=== PATIENT | female | born 1945 | race Caucasian/White ===

== ENCOUNTER → 2016-11-19 | Outpatient (CLI) | payer MEDICARE ==
--- NOTE | 2016-11-21 10:45 | REPMRS ---
Patient History The patient states she has not had a clinical breast exam in over a year. Patient is postmenopausal and has history of other cancer at age 67. Family history of breast cancer in mother at age 50 or over. Benign stereotactic core biopsy. Digital Woman Screen Mammo: November 19, 2016 - Exam #: [id number] Bilateral CC and MLO view(s) were taken. Technologist: Rosa Apodaca, Technologist Prior study comparison: December 21, 2014, digital woman screen mammo performed at [facility]. August 03, 2013, digital woman screen mammo performed at [facility] to [facility]. FINDINGS: There are scattered fibroglandular densities. There is a needle biopsy marker clip in the left breast. There has been no change in the appearance of the mammogram from the prior studies. There is a mild amount of scattered fibroglandular density which is fairly symmetric. There is no interval development of dominant mass, architectural distortion, or clustered microcalcification suggestive of malignancy. ASSESSMENT: BI-RADS/ACR category 1 mammogram. Negative. Recommendation Routine screening mammogram in 1 year (for women over age 40). This mammogram was interpreted with the aid of an FDA-approved computer-aided dectection system. Electronically Signed By: Mukesh Hernandez MD 11/21/16 2914
--- NOTE | 2016-11-22 09:31 | DEXA ---
AP SPINE L1 - L4 1.140 -0.4 1.3 LT FEMUR TOTAL 0.816 -1.5 0.0 RT FEMUR TOTAL 0.792 -1.7 -0.2 TOTAL BODY TOTAL OTHER DUAL FEMUR FRAX* ASSESSMENT Risk factors: History of fracture (adult). 10 year probability of fracture Major osteoporotic fracture 21.1 % Hip fracture 4.8 % COMMENTS: Normal bone densitometry of the spine. There is low bone density of the hips. The density of the spine has increased 3.7% since the initial exam on 2007. The spine density has decreased 3.2% since the most recent exam on 06/02/2014. The density of the left hip has decreased 2.5% since the initial exam on 2007. The density of the left hip has decreased 3.3% since the most recent exam on . The density of the right hip has decreased 4.2% since the initial exam on 2007. The density of the right hip has decreased 2.9% since the most recent exam on . FOLLOW-UP: Recommendation for the next bone density exam: 2 years. KAMARI
== END ==
LOC: M WHC 13:25
PROVIDERS: ATTEND Emergency Medicine
DX: Z13.820 Encounter for screening for osteoporosis (principal); Z12.31 Encounter for screening mammogram for malignant neoplasm of breast; Z80.3 Family history of malignant neoplasm of breast; Z85.9 Personal history of malignant neoplasm, unspecified; M81.0 Age-related osteoporosis without current pathological fracture
CPT/HCPCS: 77080; G0202

== ENCOUNTER → 2017-02-16 | Outpatient (CLI) | payer MEDICARE ==
[2017-02-16 18:37] LABS: BASO # 0.1 10^3/uL (0.0-0.2); BASO % 0.7 % (0.0-1.0); EOS # 0.2 10^3/uL (0.0-0.50); EOS % 1.6 % (0.0-3.0); IMMATURE GRANULOCYTE % 0.4 % (0-0); LYMPH # 2.4 10^3/uL (1.5-4.5); MEAN CORPUSCULAR HEMOGLOBIN 30.7 pg (27.0-33.0); MONO # 0.6 10^3/uL (0.0-0.8); MONO % 4.7 % (0.0-5.0); NEUTROPHILS # 8.7 10^3/uL (1.8-7.7); NEUTROPHILS % 72.6 % (36.0-66.0); PLATELET COUNT, AUTOMATED 315 10^3/uL (150-450); RED CELL DISTRIBUTION WIDTH 12.2 % (11.5-14.5)
[2017-02-16 18:41] LABS: ADD MORPHOLOGY? NO
== END ==
LOC: M WUC 15:37
PROVIDERS: ATTEND Physician Assistant
DX: L03.116 Cellulitis of left lower limb (principal)

== ENCOUNTER → 2017-02-17 | Outpatient (CLI) | payer MEDICARE ==
--- NOTE | 2017-02-18 06:36 | REP ---
LEFT ANKLE, FOUR VIEWS: HISTORY: Pain. There is no acute fracture or dislocation. The joint space is normal in appearance. Soft tissue swelling is present. IMPRESSION: There is no acute fracture or dislocation. Signed by Chalo Mckeon MD 02/18/2017 08:56 A
== END ==
LOC: M WUC 15:36
PROVIDERS: ATTEND Physician Assistant
DX: M25.571 Pain in right ankle and joints of right foot (principal)

== ENCOUNTER → 2018-02-06 | Outpatient (CLI) | payer MEDICARE | LOC: M WHC 10:37 | DX: Z12.31 Encounter for screening mammogram for malignant neoplasm of breast (principal) | CPT/HCPCS: 77067 ==

== ENCOUNTER → 2018-02-18 | Outpatient (REF) | payer MEDICARE | LOC: M LAB REF 17:29 | DX: R31.9 Hematuria, unspecified (principal) | CPT/HCPCS: 87186 ==

== ENCOUNTER → 2019-03-16 | Outpatient (CLI) | payer MEDICARE ==
[~2019-03-16] MED LIST: ATEN50TA2 PO; ATOR40TA75 PO; CITA10TA5 PO; ENAL10TA2 PO; FLUTISP; LAMO100T PO
--- NOTE | 2019-03-16 17:07 | REP ---
BILATERAL MAMMOGRAM WITH 3D TOMOSYNTHESIS: FAMILY HISTORY: Breast cancer in mother over age 50. [facility] lifetime risk of breast cancer 7.3%. COMPARISON: 01/2018 as well as other prior exams. Bilateral mammogram was performed in the MLO and CC projections with 3D tomosynthesis. Mild to moderate scattered fibroglandular tissue is again seen. There appeared to be increasing tiny calcifications in the upper outer quadrant of the right breast. I would recommend magnification views to further evaluate. Otherwise there are scattered benign calcifications seen bilaterally. IMPRESSION: ACR 0 incomplete. There appear to be increasing tiny calcifications in the upper outer quadrant of the right breast. Magnification views are recommended to further evaluate. BIRADS 0: BI-RADS/ACR category 0 mammogram, Incomplete: Need additional imaging evaluation and/or prior mammograms for comparison. This mammogram was interpreted with the aid of an FDA-approved computer-aided detection system. This mammogram was interpreted with the aid of an FDA-approved computer-aided detection system. The patient states she has not had a clinical breast exam in over a year. The patient letter being requested is M0.
--- NOTE | 2019-03-18 14:11 | DEXA ---
AP SPINE L1 - L4 1.114 -0.6 1.1 LT FEMUR TOTAL 0.774 -1.9 -0.2 LT NECK 0.682 -2.6 -0.7 RT FEMUR TOTAL 0.778 -1.8 -0.2 RT NECK 0.722 -2.3 -0.4 TOTAL BODY TOTAL OTHER COMMENTS: Normal bone densitometry of the spine. There is low bone density of the right hip. 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 The decreased density of the spine does represent significant change. The decreased density of the left hip does represent a significant change. The decreased density of the right hip does not represent a significant change. The density of the spine has increased 1.4% since the initial exam on 07/04/2007. The spine density has decreased 2.3% since the most recent exam on 11/19/2016. The density of the left hip has decreased 7.5% since the initial exam on 07/04/2007. The density of the left hip has decreased 5.1% since the most recent exam on 11/19/2016. The density of the right hip has decreased 5.9% since the initial exam on 07/04/2007. The density of the right hip has decreased 1.8% since the most recent exam on 11/19/2016. FOLLOW-UP: Recommendation for the next bone density exam: 2 years. KAMARI
== END ==
LOC: M WHC 12:56
PROVIDERS: ATTEND Physician Assistant
DX: R92.2 Inconclusive mammogram (principal); M89.9 Disorder of bone, unspecified; Z78.0 Asymptomatic menopausal state

== ENCOUNTER → 2019-03-26 | Outpatient (CLI) | payer MEDICARE ==
[~2019-03-26] MED LIST changes: +ISOVUE-370 76% 100ML VIAL (Q9967) As Ordered ONE
--- NOTE | 2019-03-26 17:09 | REP ---
The diagnostic right breast mammogram: Magnification CC and MLO views of the right breast are performed and compared to the recent screening mammogram of 03/16/2019. The increasing number of microcalcifications in the upper outer quadrant of the right breast are confirmed on the spot magnification views. Impression: BIRADS category 4. Suspicious mammogram. Biopsy is recommended. Patient letter : M4 Electronically Signed by Beto Carroll MD 03/26/2019 11:21 A
== END ==
LOC: M RAD 10:51
PROVIDERS: ATTEND Physician Assistant
DX: R92.0 Mammographic microcalcification found on diagnostic imaging of breast (principal)
CPT/HCPCS: 77065; Q9967

== ENCOUNTER → 2019-04-08 | Outpatient (CLI) | payer MEDICARE ==
[~2019-04-08] MED LIST changes: +AZEL0.055 NARES; -ISOVUE-370 76% 100ML VIAL (Q9967) As Ordered ONE; +LIDOCAINE 1% MDV 20ML VIAL As Ordered ONE
[2019-04-08 13:56] VITALS: BP 148/71
--- NOTE | 2019-04-08 14:15 | REP ---
POSTBIOPSY SPECIMEN RADIOGRAPH: Specimen radiograph performed following stereotactic biopsy of clustered microcalcifications in the upper outer quadrant of the right breast. Multiple calcifications are seen in the specimens, predominantly specimen #4 but also in specimens 1 and 5. Electronically Signed by Beto Dunn MD 04/09/2019 11:22 A
--- NOTE | 2019-04-08 14:15 | REP ---
POSTBIOPSY MAMMOGRAM RIGHT BREAST: MLO and CC views of the right breast is performed status post stereotactic biopsy of clustered microcalcifications. Metallic clip is seen at the site of the biopsy and the vast majority of the calcifications are no longer visualized. Electronically Signed by Beto Dunn MD 04/09/2019 11:22 A
--- NOTE | 2019-04-08 15:45 | REP ---
Stereotactic right breast biopsy. This procedure is performed by FLACO Banegas, under the personal supervision of Dr. Dunn. The risks and benefits of the procedure were explained to the patient and informed consent was obtained both verbally and written. Directly prior to the start of the procedure, a formal timeout was done in the procedure room. The cranial caudal approach was utilized. The microcalcifications in the right breast were localized using stereotactic mammographic guidance. 4 ml of 1% lidocaine was used as a local anesthetic. And 8-gauge, suction assisted Mammotome needle was inserted and 6 core biopsy samples were obtained. Specimen radiograph demonstrate the presence of microcalcifications to be within the specimen. A marker clip was placed at the biopsy site. The needle was removed and homeostasis was achieved. The patient tolerated the procedure well and there were no immediate complications. After the appropriate amount of monitored convalescence, the patient was discharged from the department. Impression: Technically successful stereotactic right breast biopsy Reviewed by FLACO Christie 04/08/2019 02:39 P Electronically Signed by Beto Dunn MD 04/08/2019 03:35 P
== END ==
LOC: M IRPRO 11:39
DX: R92.8 Other abnormal and inconclusive findings on diagnostic imaging of breast (principal)

== ENCOUNTER 2021-04-02 17:27 | Emergency (ER) | payer MEDICARE ==
[~2021-04-02] VITALS: Ht 157.5 cm; Wt 67.4 kg
[2021-04-02 17:27] VITALS: BP 133/79
[~2021-04-02 17:27] MED LIST changes: +ENAL-36 PO; -ENAL10TA2 PO; -LAMO100T PO; +LAMO100T3 PO; -LIDOCAINE 1% MDV 20ML VIAL As Ordered ONE
--- OUTSIDE RECORDS SUMMARY | 2021-04-02 17:34 | CCD | Continuity of Care Document ---
Author Author Rosa [facility] Organization Unknown Address [address] [place] [address] Phone [phone] Care Team Providers Care Cloth Printer Helper Name Role Phone Cologuard AUTM [phone] Chalo Villarrela MD AUTM Unavailable [facility] - Dermatology AUTM Problems Active Problems Provider Date Essential hypertension Sonya Madsen M.D. Onset: 10/27 Mixed hyperlipidemia Sonya Madsen M.D. Onset: 011 Migraine with typical aura Sonya Madsen M.D. Onset: 0 10/27/2010 Recurrent major depression in full remission Vivian Loving M.D. Onset: 09/23/2015 Depressive Disorder Major Recurrent In Full Remission Chip Loving M.D. Onset: 06/08/2014 Vitamin D deficiency Chip Loving M.D. Onset: 07/09 Social History Type Date Description Comments Sex Unknown Tobacco Use Start: Unknown Never Smoked Cigarettes Tobacco Use Start: Unknown Never Used Smokeless Tobacco ETOH Use Denies alcohol use Tobacco Use Start: Unknown Patient has never smoked Recreational Drug Use Denies Drug Use Smoking Status Reviewed: 01/13/21 Patient has never smoked Exercise Type/Frequency Does not exercise Tattoo/Piercing Pierced ears Sun Exposure Does not use sunscreen Sun Exposure Minimum amount of sun exposure Seat Belt/Car Seat Always uses seat belt Bike Helmet Always Smoke Alarms Yes Smoke Alarms Carbon Monoxide Detector: Yes Allergies, Adverse Reactions, Alerts Description No Known Drug Allergies Medications Active Medications SIG Qnty Indications Ordering Provide r Date Atorvastatin Calcium 40mg Tablets take 1 tablet by mouth daily for cholesterol 90tabs E78.2 Estrella Irwin, FREELANCE WRITER 09/24/2016 Atenolol 50mg Tablets take 1 tablet by mouth once daily for blood pressure 90tabs Andrzej Irwin, FREELANCE WRITER 06/08/2014 Lamictal 100mg Tablets 1 by mouth three times a day 60tabs Tahir Tariq DO, PhD Citalopram Hydrobromide 20mg Table ts 1 by mouth every day Tahir Tariq DO, PhD Enalapril Maleate 10mg Tablets take 1 tablet by mouth once daily 90tabs Estrella Irwin, FREELANCE WRITER Multivitamin Women Tablets 1 by mouth every day Unknown QC Tumeric Complex 500mg Capsules 2 by mouth every day Unknown Flonase Allergy Relief 50mcg/Act Suspension 1 spray each nare daily Unknown Azelastine HCL (Nasal) 0.1% Soluti on use 2 sprays in each nostril two times a day Unknown Immunizations CPT Code Status Date Vaccine Lot # [id number] Given 08/19/2020 Moderna Sars-(Co vid-19) vaccine, mRNA, LNP-S, PF, 100 mcg/ 0.5 mL [id number] Given 07/22/2020 Moderna Sars-(Co vid-19) vaccine, mRNA, LNP-S, PF, 100 mcg/ 0.5 mL [id number] Given 02/16/2020 Prevnar 13 [id number] Given 02/12/2017 Boostrix (Tdap) Tetnus, Diphtheria Toxoids & Acellular Pertussis [id number] Refused 09/23/2015 Prevnar 13 For Adults 95763 Refused 09/23/2015 Zostavax [id number] Refused 06/15/2015 Pneumococcal Vaccine Vital Signs Date Vital Result Comment 01/13/2021 11:28am BP Systolic 149 mmHg BP Diastolic 74 mmHg BP Systolic Recheck 122 mmHg BP Diastolic Recheck 72 mmHg Heart Rate 66 /min Body Temperature 97.0 F Respiratory Rate 17 /min Height 62 inches 5'2" Weight 148.12 lb O2 % BldC Oximetry 98 % Peak Expiratory Flow Rate 304 Estimated Peak Flow Rate [place] Body Weight 110 lb BMI (Body Mass Index) 27.1 kg/m2 10/25/2020 1:24pm BP Systolic 166 mmHg BP Diastolic 78 mmHg BP Systolic Recheck 148 mmHg recheck BP Diastolic Recheck 80 mmHg recheck Heart Rate 72 /min Body Temperature 97.3 F Respiratory Rate 15 /min Height 62 inches 5'2" Weight 146.00 lb Peak Expiratory Flow Rate 304 Estimated Peak Flow Rate [place] Body Weight 110 lb BMI (Body Mass Index) 26.7 kg/m2 Results Test Acquired Date Facility Test Result H/L Range Note CBC With Differential 10/28/2020 [facility] CBC W/Automated Diff (SEE NOTE) 1, 2 WBC 7.7 10^3/uL 4.2 - 11.0 RBC 4.94 10^6/uL 4.20 - 5.40 Hemoglobin 15.3 g/dL 12.0 - 16.0 Hematocrit 45.5 % 37.0 - 47.0 MCV 92.1 fL 81.0 - 101 MCH 31.0 pg 27.0 - 34.0 MCHC 33.6 g/dL 31.0 - 36.0 RDW 12.1 % 11.5 - 14.5 Platelets 229 10^3/uL 150 - 450 MPV 9.3 fL 7.4 - 10.4 Neut 59.0 % 37.0 - 80.0 Lymph 32.1 % 25.0 - 40.0 [place] 5.5 % 3.0 - 8.0 Eos 2.3 % 0.0 - 7.0 Baso 0.8 % 0.0 - 2.5 %Ig 0.3 % High 0.0 - 0.0 %NRBC 0.0 % 0.0 - 0.0 #Neut 4.54 10^3/uL 2.00 - 6.90 #Lymph 2.47 10^3/uL 0.60 - 3.40 #[place] 0.42 10^3/uL 0.00 - 0.90 #Eos 0.18 10^3/uL 0.00 - 0.70 #Baso 0.06 10^3/uL 0.00 - 0.20 #Ig 0.02 10^3/uL 0.00 - 0.10 #NRBC 0.00 10^3/uL 0.00 - 0.00 Manual Diff NOT INDICATED RBC Morph NOT INDICATED Lipid Panel 10/28/2020 [facility] Cve Panel (SEE NOTE) 3 Cholesterol 138 mg/dL 131 - 200 Triglycerides 190 mg/dL High 35 - 160 HDL 59 mg/dL 29 - 86 LDL 57 mg/dL Low 65 - 175 Risk Factor 2.3 Low 3.2 - 4.4 LDL/HDL 0.97 Low 1.47 - 3.22 4 Comprehensive Metabolic Panel 10/28/2020 [facility] ospital Comprehensive Metabo (SEE NOTE) 5 Sodium 138 mEq/L 134 - 153 Potassium 4.4 mEq/L 3.6 - 5.0 Chloride 102 mEq/L 98 - 107 Co2 24 mEq/L 22 - 30 Glucose 103 mg/dL High 70 - 99 BUN 11 mg/dL 7 - 21 Creatinine 0.9 mg/dL 0.7 - 1.5 BUN/Creat 12 8 - 27 Total Protein 7.2 g/dL 6.3 - 8.2 Albumin 4.8 g/dL 3.9 - 5.0 Globulin 2.4 GM/DL 2.4 - 3.2 A/G Ratio 2.0 0.8 - 2.0 Calcium 10.3 mg/dL High 8.4 - 10.2 Total Bili <0.7 mg/dL 0.2 - 1.3 Alkaline Phos 138 U/L High 38 - 126 Sgot/Ast 21 U/L 5 - 40 SGPT/Alt 22 U/L 7 - 56 Anion Gap 12.0 mmol/L 8.0 - 16.0 Age 75 yrs Non-Aa GFR >60 mL/min Afr Amer GFR >60 6 1 Is patient fasting? N 2 COMPLETE BLOOD COUNT 3 LIPID PANEL 4 CVE RISK CHOL/HDL LDL/HDL MEN: 1/2 AVERAGE 3.43 1.00 AVERAGE 4.97 3.55 2X AVERAGE 9.55 6.25 3X AVERAGE 23.99 7.99 WOMEN: 1/2 AVERAGE 3.27 1.47 AVERAGE 4.44 3.22 2X AVERAGE 7.05 5.03 3X AVERAGE 11.04 6.14 5 COMPREHENSIVE METABOLIC PANE L 6 Male GFR Interprentation 20-49 yrs >60 mL/min Normal 50-59 yrs >56 mL/min Normal 60-69 yrs >49 mL/min Normal 70-79yrs >42 mL/min Normal 80 and above >35 mL/min Normal Female GFR Interpretation 20-39 yrs >60 mL/min Normal 40-49 yrs >58 mL/min Normal 50-59 yrs >51 mL/min Normal 60-69 yrs >45 mL/min Normal 70-79 yrs >39 mL/min Normal 80 and above >32 mL/min Normal Procedures Date Code Description Status 01/13/2021 19452 Office/Outpatient Established Lo w MDM 20-29 Min Completed 10/25/2020 63241 Office/Outpatient Established Mo d MDM 30-39 Min Completed 09/22/2020 26185 Office/Outpatient Established Lo w MDM 20-29 Min Completed 03/31/2019 [id number] Mammogram Completed 03/16/2019 [id number] Bone Mineral Density Test Comple jason 11/19/2016 [id number] Mammogram Completed Medical Devices Description No Information Available Encounters Type Date Location Provider Dx Diagnosis Office Visit 01/13/2021 11:30a Main Office Estrella Irwin FNP M25.5 62 Pain in left knee Office Visit 10/25/2020 1:15p Main Office Sonya Madsen M.D. I 10 Essential (primary) hypertension E78.2 Mixed hyperlipidemia R21 Rash and other nonspecific s kin eruption Office Visit 09/22/2020 10:30a Main Office Lisbeth Worthy PA L50.9 Urticaria, unspecified Assessments Date Code Description Provider 01/13/2021 M25.562 Pain in left knee Glen Irwin FNP 10/25/2020 I10 Essential (primary) hypertension Sonya Madsen M.D. 10/25/2020 E78.2 Mixed hyperlipidemia Jennifer Madsen M.D. 10/25/2020 R21 Rash and other nonspecific skin eruption Sonya Madsen M.D. 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 thank you. Scheduled 02/24/2021 [facility] [address] [place] [address] [phone] Chalo Villarreal MD Please evaluate patient for urticaria. Thank you. Closed 12/29/2020 [facility] [address] [facility] [address] [phone]
--- OUTSIDE RECORDS SUMMARY | 2021-04-02 17:34 | CCD | Continuity of Care Document ---
Author Author Rosa GUY Organization Unknown Address [address] [place] [address] [place] [address] Phone [phone] Care Team Providers Care Fry Cook Name Role Phone Sonya Madsen MD [facility] [phone] Problems Description No Information Available Social History Type Date Description Comments Sex Unknown ETOH Use Denies alcohol use Tobacco Use Start: Unknown Patient has never smoked Tobacco Use Start: Unknown The Patient Has Never Vaped Smoking Status Reviewed: 03/09/21 The Patient Has Never Vaped Allergies and adverse reactions Description No Known Drug Allergies Medications Active Medications SIG Qnty Indications Ordering Provide r Date Triamcinolone Acetonide 0.1% Ointm ent apply to affective area twice a day for 10 days only then stop 45gm L23.89 Mayo Bar JR., M.D. 09/20/2020 Enalapril Maleate 10mg Tablets Unknown Lamictal 100mg Tablets Unknown Celexa 10mg Tablets Unknown Vitamin D3 5000Unit Tablets 1 weekly 4tabs Unknown Mvi Unknown Atenolol 50mg Tablets Unknown Atorvastatin Calcium 40mg Tablets Unknown QC Tumeric Complex 500mg Capsules Unknown Apple Cider Vinegar 300mg Tablets Unknown Medications Administered in Office Medication SIG Qnty Indications Ordering Provider Date Rocephin/Ceftriaxone Sodium Injection Pe r 250 MG Injection CherryFRACISCO Mark 06/2016 Rocephin/Ceftriaxone Sodium Injection Pe r 250 MG Injection Cherry FRACISCO Alcala 05/2016 Rocephin/Ceftriaxone Sodium Injection Pe r 250 MG Injection Cherry FRACISCO [place]a 01/20 Immunizations CPT Code Status Date Vaccine Lot # [id number] Given 02/12/2017 Tdap/Tetanus, Di phth Toxoids/Acellular Pertussis Vac 7Yr Or > [id number] Vital Signs Date Vital Result Comment 03/09/2021 6:26pm BP Systolic 144 mmHg BP Diastolic 80 mmHg Heart Rate 75 /min Respiratory Rate 18 /min O2 % BldC Oximetry 97 % Body Temperature 98.1 F Weight 148.00 lb Height 63 inches 5'3" BMI (Body Mass Index) 26.2 kg/m2 Pain Level 0 09/20/2020 4:40pm BP Systolic 173 mmHg BP Diastolic 86 mmHg Heart Rate 69 /min Respiratory Rate 16 /min O2 % BldC Oximetry 98 % Body Temperature 97.5 F Weight 140.00 lb Height 63 inches 5'3" BMI (Body Mass Index) 24.8 kg/m2 Pain Level 0 Results Description No Information Available Procedures Date Code Description Status 03/09/2021 67639 Office/Outpatient Established Lo w MDM 20-29 Min Completed 03/09/2021 16449 Remove Impact Cerumen Irrigati C ompleted 09/20/2020 39718 Office/Outpatient New Low MDM 30 -44 Minutes Completed Medical Devices Description No Information Available Encounters Type Date Location Provider Dx Diagnosis Office Visit 03/09/2021 4:35p Main Office Lenny Guy, P.A. H6 1.21 Impacted cerumen, right ear Office Visit 09/20/2020 4:25p Main Office FRACISCO Burnham L23 .89 Allergic contact dermatitis due to other agents Assessments Date Code Description Provider 03/09/2021 H61.21 Impacted cerumen, right ear Lit Guy, P.A. 09/20/2020 L23.89 Allergic contact dermatitis due to other agents FRACISCO Burnham Plan of Treatment 03/09/2021 - Lenny Guy, P.A.* H61.21 Impacted cerumen, right ear* Comments:* post-irrigation patient feels much improved. No painTM's normalOTC wax softening drops if symptoms return, return for irrigation if no improvement. Functional Status Description No Information Available Mental Status Description No Information Available Referrals Description No Information Available
--- OUTSIDE RECORDS SUMMARY | 2021-04-02 17:34 | CCD | Continuity of Care Document ---
Author Author Rosa [facility] Organization Unknown Address [address] [place] [address] Phone [phone] Care Team Providers Care Forest Landscape Ecology Professor Name Role Phone Cologuard AUTM [phone] Chalo Villarreal MD AUTM Unavailable [facility] - Dermatology AUTM [facility] - Orthopaedic Surgery AUTM [phone] Problems Active Problems Provider Date Essential hypertension [...] Use Denies Drug Use Smoking Status Reviewed: 03/07/21 Patient has never smoked Exercise Type/Frequency Does not exercise Tattoo/Piercing Pierced ears Sun Exposure Does not use sunscreen Sun Exposure Minimum amount of sun exposure Seat Belt/Car Seat Always uses seat belt Bike Helmet Always Smoke Alarms Yes Smoke Alarms Carbon Monoxide Detector: Yes Allergies and adverse reactions Description No Known Drug Allergies Medications Active Medications SIG Qnty Indications Ordering Provide r Date Atorvastatin Calcium 40mg Tablets Take 1 Tablet By Mouth Daily For Cholesterol 90tabs E78.2 Estrella Irwin, TOILET AND LAUNDRY SOAP SUPERVISOR 09/24/2016 Atenolol 50mg Tablets Take 1 Tablet By Mouth Once Daily For Blood Pressure 90tabs Andrzej Irwin, TOILET AND LAUNDRY SOAP SUPERVISOR 06/08/2014 Lamictal 100mg Tablets 1 by mouth three times a day 60tabs Tahir Tariq DO, PhD Citalopram Hydrobromide 20mg Table ts 1 by mouth every day Tahir Tariq DO, PhD Enalapril Maleate 10mg Tablets Take 1 Tablet By Mouth Once Daily 90tabs Estrella Irwin, TOILET AND LAUNDRY SOAP SUPERVISOR Multivitamin Women Tablets 1 by mouth every day Unknown QC Tumeric Complex 500mg Capsules 2 by mouth every day Unknown Flonase Allergy Relief 50mcg/Act Suspension 1 spray each nare daily Unknown Azelastine HCL (Nasal) 0.1% Soluti on use 2 sprays in each nostril two times a day Unknown Immunizations CPT Code Status Date Vaccine Lot # [id number] Given 08/19/2020 Moderna Sars-(Co vid-19) vaccine, mRNA, LNP-S, PF, 100 mcg/ 0.5 mL [id number] Given 07/22/2020 Moderna Sars-(Co vid-19) vaccine, mRNA, LNP-S, PF, 100 mcg/ 0.5 mL 03203 Given 02/16/2020 Prevnar 13 [id number] 97537 Given 02/12/2017 Boostrix (Tdap) Tetnus, Diphtheria Toxoids & Acellular Pertussis 97517 Refused 09/23/2015 Prevnar 13 For Adults 53690 Refused 09/23/2015 Zostavax [id number] Refused 06/15/2015 Pneumococcal Vaccine Vital Signs Date Vital Result Comment 03/07/2021 11:46am BP Systolic 150 mmHg BP Diastolic 90 mmHg BP Systolic Recheck 126 mmHg BP Diastolic Recheck 69 mmHg Heart Rate 16 /min Body Temperature 96.4 F Respiratory Rate 16 /min Height 62 inches 5'2" Weight 149.12 lb O2 % BldC Oximetry 96 % Peak Expiratory Flow Rate 304 Estimated Peak Flow Rate [place] Body Weight 110 lb BMI (Body Mass Index) 27.3 kg/m2 01/13/2021 11:28am BP Systolic 149 mmHg BP Diastolic 74 mmHg BP Systolic Recheck 122 mmHg BP Diastolic Recheck 72 mmHg Heart Rate 66 /min Body Temperature 97.0 F Respiratory Rate 17 /min Height 62 inches 5'2" Weight 148.12 lb O2 % BldC Oximetry 98 % Peak Expiratory Flow Rate 304 Estimated Peak Flow Rate [place] Body Weight 110 lb BMI (Body Mass Index) 27.1 kg/m2 Results Test Acquired Date Facility Test Result H/L Range Note CBC With Differential 10/28/2020 [facility] CBC W/Automated Diff (SEE NOTE) 1, 2 [...] 80.0 Lymph 32.1 % 25.0 - 40.0 [place] 5.5 % 3.0 - 8.0 Eos 2.3 % 0.0 - 7.0 Baso 0.8 % 0.0 - 2.5 %Ig 0.3 % High 0.0 - 0.0 %NRBC 0.0 % 0.0 - 0.0 #Neut 4.54 10^3/uL 2.00 - 6.90 #Lymph 2.47 10^3/uL 0.60 - 3.40 #[place] 0.42 10^3/uL 0.00 - 0.90 #Eos 0.18 10^3/uL 0.00 - 0.70 #Baso 0.06 10^3/uL 0.00 - 0.20 #Ig 0.02 10^3/uL 0.00 - 0.10 #NRBC 0.00 10^3/uL 0.00 - 0.00 Manual Diff NOT INDICATED RBC Morph NOT INDICATED Lipid Panel 10/28/2020 [facility] Cve Panel (SEE NOTE) 3 Cholesterol 138 mg/dL 131 - 200 Triglycerides 190 mg/dL High 35 - 160 HDL 59 mg/dL 29 - 86 LDL 57 mg/dL Low 65 - 175 Risk Factor 2.3 Low 3.2 - 4.4 LDL/HDL 0.97 Low 1.47 - 3.22 4 Comprehensive Metabolic Panel 10/28/2020 [facility] Comprehensive Metabo (SEE NOTE) 5 Sodium 138 [...] Normal Procedures Date Code Description Status 01/13/2021 36477 Office/Outpatient Established Lo w MDM 20-29 Min Completed 10/25/2020 53705 Office/Outpatient Established Mo d MDM 30-39 Min Completed 09/22/2020 79133 Office/Outpatient Established Lo w MDM 20-29 Min Completed 03/31/2019 [id number] Mammogram Completed 03/16/2019 [id number] Bone Mineral Density Test Comple jason 11/19/2016 [id number] Mammogram Completed Medical Devices Description No Information [...] Urticaria, unspecified Assessments Date Code Description Provider 03/07/2021 H61.23 Impacted cerumen, bilateral Ples Estrella anthony, TOILET AND LAUNDRY SOAP SUPERVISOR 01/13/2021 M25.562 Pain in left knee Glen Irwin TOILET AND LAUNDRY SOAP SUPERVISOR 10/25/2020 I10 Essential (primary) hypertension Sonya Madsen M.D. 10/25/2020 E78.2 Mixed hyperlipidemia Jennifer Madsen M.D. 10/25/2020 R21 Rash and other nonspecific skin eruption Sonya Madsen M.D. 09/22/2020 L50.9 Urticaria Andi Worthy cia, PA Plan of Treatment Future Appointment(s):* 05/04/2021 1:00 pm - Estrella Irwin FNP at Main Office 03/07/2021 - Estrella Irwin FNP* H61.23 Impacted cerumen, bilateral Functional Status Functional Condition Comment Date Status Glasses for reading only Active Independent with all ADL's Activ e Mental Status Mental Condition Comment Date Status None Active Referrals Refer to Reason for Referral Status Appt Date [facility] Please evaluate for left kne e pain. Thank you. Patient Declined [address] [place] [address] [phone] [facility] Dermatology patient is requesting an ref erral for her annual skin check, she use to follow [facility]. thank you. Closed 02/24/2021 [facility] [address] [facility] [place] [address] [phone] Chalo Villarreal MD Please evaluate patient for urticaria. Thank you. Closed 12/29/2020 [facility] [address] 4th floor [facility] [address] [phone]
--- OUTSIDE RECORDS SUMMARY | 2021-04-02 17:34 | CCD | Continuity of Care Document ---
Author Author Rosa IRWIN [facility] Organization Unknown Address [address] [place] [address] Phone [phone] Care Team Providers Care Pipelines Manager Name Role Phone Cologuard AUTM [phone] Chalo Villarreal MD AUTM Unavailable [facility] - Dermatology AUTM [phone] [facility] - Orthopaedic Surgery AUTM [phone] Problems Active Problems Provider Date Essential hypertension [...] SIG Qnty Indications Ordering Provide r Date Debrox 6.5% Solution 4-5 drops in right ear twice a day for 4 days 1Bottle H61.23 Estrella Irwin FNP 03/07/2021 Atorvastatin Calcium 40mg Tablets Take 1 Tablet By Mouth Daily For Cholesterol 90tabs E78.2 Estrella Irwin FNP 09/24/2016 Atenolol 50mg Tablets Take 1 Tablet By Mouth Once Daily For Blood Pressure 90tabs Andrzej Irwin FNP 06/08/2014 Lamictal 100mg Tablets 1 by mouth three times a day 60tabs Tahir Tariq DO, PhD Citalopram Hydrobromide 20mg Table ts 1 by mouth every day Tahir Tariq DO, PhD Enalapril Maleate 10mg Tablets Take 1 Tablet By Mouth Once Daily 90tabs Estrella Irwin, FOREST Multivitamin Women Tablets 1 by mouth every day Unknown QC Tumeric Complex 500mg Capsules 2 by mouth every day Unknown Flonase Allergy Relief 50mcg/Act Suspension 1 spray each nare daily Unknown Azelastine HCL (Nasal) 0.1% Soluti on use 2 sprays in each nostril two times a day Unknown Immunizations CPT Code Status Date Vaccine Lot # [id number] Given 08/19/2020 Moderna Sars-(Co vid-19) vaccine, mRNA, LNP-S, PF, 100 mcg/ 0.5 mL 00215 Given 07/22/2020 Moderna Sars-(Co vid-19) vaccine, mRNA, LNP-S, PF, 100 mcg/ 0.5 mL 65359 Given 02/16/2020 Prevnar 13 [id number] 82931 Given 02/12/2017 Boostrix (Tdap) Tetnus, Diphtheria Toxoids & Acellular Pertussis 45151 Refused 09/23/2015 Prevnar 13 For Adults 68022 Refused 09/23/2015 Zostavax 83373 Refused 06/15/2015 Pneumococcal Vaccine Vital Signs Date [...] Flow Rate 304 Estimated Peak Flow Rate [place] Body Weight 110 lb BMI (Body Mass [...] Flow Rate 304 Estimated Peak Flow Rate [place] Body Weight 110 lb BMI (Body Mass Index) 27.1 kg/m2 Results Test Acquired Date Facility Test Result H/L Range Note CBC With Differential 10/28/2020 [facility] CBC W/Automated Diff (SEE NOTE) [...] 80.0 Lymph 32.1 % 25.0 - 40.0 [place] 5.5 % 3.0 - 8.0 Eos 2.3 % 0.0 - 7.0 Baso 0.8 % 0.0 - 2.5 %Ig 0.3 % High 0.0 - 0.0 %NRBC 0.0 % 0.0 - 0.0 #Neut 4.54 10^3/uL 2.00 - 6.90 #Lymph 2.47 10^3/uL 0.60 - 3.40 #[place]iley 0.42 10^3/uL 0.00 - 0.90 #Eos 0.18 10^3/uL 0.00 - 0.70 #Baso 0.06 10^3/uL 0.00 - 0.20 #Ig 0.02 10^3/uL 0.00 - 0.10 #NRBC 0.00 10^3/uL 0.00 - 0.00 Manual Diff NOT INDICATED RBC Morph NOT INDICATED Lipid Panel 10/28/2020 [facility] Cve Panel (SEE NOTE) 3 Cholesterol 138 mg/dL 131 - 200 Triglycerides 190 mg/dL High 35 - 160 HDL 59 mg/dL 29 - 86 LDL 57 mg/dL Low 65 - 175 Risk Factor 2.3 Low 3.2 - 4.4 LDL/HDL 0.97 Low 1.47 - 3.22 4 Comprehensive Metabolic Panel 10/28/2020 [facility] Comprehensive Metabo (SEE NOTE) 5 Sodium 138 [...] mL/min Normal Procedures Date Code Description Status 03/07/2021 51157 Office/Outpatient Established Lo w MDM 20-29 Min Completed 03/07/2021 55786 Ear Irrigation Requiring Instrum entation-Unilateral Completed 01/13/2021 41655 Office/Outpatient Established Lo w MDM 20-29 Min Completed 10/25/2020 10405 Office/Outpatient Established Mo d MDM 30-39 Min Completed 09/22/2020 60624 Office/Outpatient Established Lo w MDM 20-29 Min Completed 03/31/2019 [id number] Mammogram Completed 03/16/2019 [id number] Bone Mineral Density Test Comple jason 11/19/2016 [id number] Mammogram Completed Medical Devices Description No Information Available Encounters Type Date Location Provider Dx Diagnosis Office Visit 03/07/2021 11:45a Main Office Estrella Irwin FNP H61.2 3 Impacted cerumen, bilateral Office Visit 01/13/2021 11:30a Main Office Estrella Irwin, ELEVATOR STARTER M25.5 62 Pain in left knee Office Visit 10/25/2020 1:15p Main Office Sonya Madsen M.D. I 10 Essential (primary) hypertension E78.2 Mixed hyperlipidemia R21 Rash and other nonspecific s kin eruption Office Visit 09/22/2020 10:30a Main Office Lisbeth Worthy PA L50.9 Urticaria, unspecified Assessments Date Code Description Provider 03/07/2021 H61.23 Impacted cerumen, bilateral Ples Estrella anthony, ELEVATOR STARTER 01/13/2021 M25.562 Pain in left knee RiddhiskGlen miguel, ELEVATOR STARTER 10/25/2020 I10 Essential (primary) hypertension Sonya Madsen M.D. 10/25/2020 E78.2 Mixed hyperlipidemia Jennifer Madsen M.D. 10/25/2020 R21 Rash and other nonspecific skin eruption Sonya Madsen M.D. 09/22/2020 L50.9 Urticaria Andi Worthy cia, PA Plan of Treatment Future Appointment(s):* 05/04/2021 1:00 pm - Estrella Irwin FNP at Main Office 03/07/2021 - Estrella Irwin FNP* H61.23 Impacted cerumen, bilateral* New Medication:* Debrox 6.5 % - 4-5 drops in right ear twice a day for 4 days * Comments:* left ear irrigated with effect, right ear remains impacted, use debrox for 3-4 days and flush again as needed Functional Status Functional Condition Comment Date Status Glasses for reading only Active Independent with all ADL's Activ e Mental Status Mental Condition Comment Date Status None Active Referrals Refer to Reason for Referral Status Appt Date [facility] Please evaluate for left kne e pain. Thank you. Patient Declined [address] [place] [address] [phone] [facility] Dermat[facility] patient is requesting an ref erral for her annual skin check, she use to follow [facility]. thank you. Closed 02/24/2021 [facility] [address] [facility] [place] [address] [phone] Chalo Villarreal MD Please evaluate patient for urticaria. Thank you. Closed 12/29/2020 [facility] All[facility] Immunology [address] [facility] 4th floor [facility] [address] [phone]
--- OUTSIDE RECORDS SUMMARY | 2021-04-02 17:34 | CCD ---
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 29 9083625 Problem Hx of basal cell carcinoma Z85.828 Active confirmed 140887565 Problem Postmenopausal status (age-related) (natural) V49.81 Active confirmed 67598581 Problem Routine gynecological examination V72.31 Active confirmed [id number] ALLERGIES No Known Allergies ENCOUNTERS from 1945 to 2021-02-28 Encounter Location Date Provider Diagnosis [facility] Derm[facility] [address] [place] [address] [place] [address] Feb, Christelle Redd IMMUNIZATIONS Vaccine Route Administration Date Status Influenza 6mo & up Fluzone Unknown Mar 28, 2017 Other s SOCIAL HISTORY Tobacco Use: Social History Observation Description Date Details (start date - stop date) Never Smoker Sex Assigned At : Social History Observation Description Sex Assigned At Unknown Language: Question Answer Notes Languages spoken: Maltese Worship: Question Answer Notes Worship 13 Religion Sexual Hx: Question Answer Notes Had sex in the last 12 months (vaginal, oral, or anal)? No LMP: psot menopause Have you ever had an STD? No Alcohol Screening: Question Answer Notes Did you have a drink containing alcohol in the past year? No Points 0 Interpretation Negative Tobacco Use: Question Answer Notes Are you a: never smoker REASON FOR REFERRAL No Information VITAL SIGNS No information MEDICATIONS Medication SIG (Take, Route, Frequency, Duration) Notes Start Da te End Date Status Atorvastatin Calcium 40 MG 1 tablet Orally Once a day Active Hydroquinone 4 % 1 application Externally Twice a day full face for 90 days 08 Feb, 2021 Active Betamethasone Dipropionate 0.05 % as directed External ly 50g tube mix into 1/2 jar of CeraVe cream, Apply twice daily for 14 days Feb, Active Atenolol 25 MG 1 tablet p.o. Once a day for 30 day(s) Active Calcium + D 600-200 MG-UNIT 1 tablet with food Orally Once a day for 30 day(s) Jun, Not-Taking Estradiol 0.1 MG/GM as directed Vaginal 1 gram Q day for 2 weeks, then 3x per week for 1 week, then 2x per week as needed. for 30 days September Active LaMICtal 100 mg 1 tablet p.o. three times a day for 30 day(s) Active Enalapril Maleate 5 MG 1 tablet p.o. once a day for 30 day(s) Active Lexapro 20 MG 1 tablet Orally Once a day Active Multivitamins otc 1 tab(s) p.o. once a day Not-Taking Levocetirizine Dihydrochloride 5 MG 1 tablet in the ev ening Orally Once a day for 30 day(s) Feb, Active PROCEDURES No Information RESULTS No Results REASON FOR VISIT Hydroquinone denial MEDICAL (GENERAL) HISTORY Type Description Date Medical History depression Medical History hypertension Medical History migraine headaches Surgical History colonoscopy 2003 Surgical History tubal ligation Surgical History A-V fistula Surgical History cataract surgery 01/2015 Hospitalization History No Hospitalization history informati on Goals Section No Information Health Concerns No Information MEDICAL EQUIPMENT No Information MENTAL STATUS No Information FUNCTIONAL STATUS No Information ASSESSMENTS No Information PLAN OF TREATMENT Medication Medication Name Sig Start Date Stop Date Hydroquinone 4 % 1 application Externally Twice a day ful l face for 90 days Feb, Levocetirizine Dihydrochloride 5 MG 1 tablet in the ev ening Orally Once a day for 30 day(s) Feb, Betamethasone Dipropionate 0.05 % as directed External ly 50g tube mix into 1/2 jar of CeraVe cream, Apply twice daily for 14 days Feb, Next Appt Details Provider Name:Christelle Redd, 03:45:00 PM, [address] [place] [address], , [place], [place], [facility], Provider Name:Christelle Redd, 01:45:00 PM, [address] [facility], , [place], [place], [facility], Insurance Providers Payer Name Payer Address Payer Phone Insured Name Patient Relati onship to Insured Coverage Start Date Coverage End Date MEDICARE COMPLETE [facility] [address] [address] [facility] [phone] AUBREY CUNHA
--- OUTSIDE RECORDS SUMMARY | 2021-04-02 17:34 | CCD | Continuity of Care Document ---
Author Author [facility] [place] Unknown Address [address] [place] [address] [place] [address] Phone [phone] Care Team Providers Care Publicity Director Name Role Phone Sonya Madsen MD AUTM [phone] Problems Description No Information Available Social History [...] r 250 MG Injection Cherry FRACISCO [place] 06/2016 Rocephin/Ceftriaxone Sodium Injection Pe r 250 MG Injection Cherry FRACISCO [place] 05/2016 Rocephin/Ceftriaxone Sodium Injection Pe r 250 MG Injection Cherry FRACISCO [place] 01/20 Immunizations CPT Code Status Date Vaccine Lot # [id number] Given 02/12/2017 Tdap/Tetanus, Di phth Toxoids/Acellular Pertussis Vac 7Yr Or > [id number] Vital Signs Date Vital Result Comment 03/09/2021 [...] Available Procedures Date Code Description Status 03/09/2021 00583 Office/Outpatient Established Lo w MDM 20-29 Min Completed 03/09/2021 96811 Remove Impact Cerumen Irrigati C ompleted 09/20/2020 90132 Office/Outpatient New Low MDM 30 -44 Minutes Completed Medical Devices Description No Information Available Encounters Type Date Location Provider Dx Diagnosis Office Visit 03/09/2021 4:35p Main Office Lenny Solorzano, P.A. H6 1.21 Impacted cerumen, right ear Office Visit 09/20/2020 4:25p Main Office FRACISCO Burnham L23 .89 Allergic contact dermatitis due to other agents Assessments Date Code Description Provider 03/09/2021 H61.21 Impacted cerumen, right ear Lit Solorzano, P.A. 09/20/2020 L23.89 Allergic contact dermatitis due to other agents FRACISCO Burnham Plan of Treatment 03/09/2021 - Lenny Solorzano, P.A.* H61.21 Impacted cerumen, right ear* Comments:* post-irrigation patient feels much improved. No painTM's normalOTC wax softening drops if symptoms return, return for irrigation if no improvement. Functional Status Description No Information Available Mental Status Description No Information Available Referrals Description No Information Available
--- OUTSIDE RECORDS SUMMARY | 2021-04-02 17:34 | CCD | Continuity of Care Document ---
Author Author Rosa [facility] Organization Unknown Address [address] [place] [address] Phone [phone] Care Team Providers Care Road Repairer Name Role Phone Cologuard AUTM [phone] Chalo Villarreal MD AUTM Unavailable [facility] - Dermatology AUTM Problems Active Problems Provider Date Essential hypertension Sonya Madsne M.D. Onset: 10/27 Mixed hyperlipidemia Sonya Madsen [...] daily for cholesterol 90tabs E78.2 Estrella Irwin, LIEN SEARCHER 09/24/2016 Atenolol 50mg Tablets take 1 tablet by mouth once daily for blood pressure 90tabs Andrzej Irwin, LIEN SEARCHER 06/08/2014 Lamictal 100mg Tablets 1 by mouth three times a day 60tabs Tahir Tariq DO, PhD Citalopram Hydrobromide 20mg Table ts 1 by mouth every day Tahir Tariq DO, PhD Enalapril Maleate 10mg Tablets take 1 tablet by mouth once daily 90tabs Estrella Irwin, LIEN SEARCHER Multivitamin Women Tablets 1 by mouth every day Unknown QC Tumeric Complex 500mg Capsules 2 by mouth every day Unknown Flonase Allergy Relief 50mcg/Act Suspension 1 spray each nare daily Unknown Azelastine HCL (Nasal) 0.1% Soluti on use 2 sprays in each nostril two times a day Unknown Immunizations CPT Code Status Date Vaccine Lot # [id number] Given 08/19/2020 Moderna Sars-(Co vid-19) vaccine, mRNA, LNP-S, PF, 100 mcg/ 0.5 mL 34320 Given 07/22/2020 Moderna Sars-(Co vid-19) vaccine, mRNA, LNP-S, PF, 100 mcg/ 0.5 mL 47177 Given 02/16/2020 Prevnar 13 [id number] Given 02/12/2017 Boostrix (Tdap) Tetnus, Diphtheria Toxoids & Acellular Pertussis 34982 Refused 09/23/2015 Prevnar 13 For Adults 41795 Refused 09/23/2015 Zostavax 51896 Refused 06/15/2015 Pneumococcal Vaccine Vital Signs Date [...] Flow Rate 304 Estimated Peak Flow Rate [place] Body Weight 110 lb BMI (Body Mass Index) 27.1 kg/m2 10/25/2020 1:24pm BP Systolic 166 mmHg BP Diastolic 78 mmHg BP Systolic Recheck 148 mmHg recheck BP Diastolic Recheck 80 mmHg recheck Heart Rate 72 /min Body Temperature 97.3 F Respiratory Rate 15 /min Height 62 inches 5'2" Weight 146.00 lb Peak Expiratory Flow Rate 304 Estimated Peak Flow Rate [place] Body Weight 110 lb BMI (Body Mass Index) 26.7 kg/m2 Results Test Acquired Date Facility Test Result H/L Range Note CBC With Differential 10/28/2020 [facility] CBC W/Automated Diff (SEE NOTE) 1, [...] 80.0 Lymph 32.1 % 25.0 - 40.0 [place] 5.5 % 3.0 - 8.0 Eos 2.3 % 0.0 - 7.0 Baso 0.8 % 0.0 - 2.5 %Ig 0.3 % High 0.0 - 0.0 %NRBC 0.0 % 0.0 - 0.0 #Neut 4.54 10^3/uL 2.00 - 6.90 #Lymph 2.47 10^3/uL 0.60 - 3.40 #[place] 0.42 10^3/uL 0.00 - 0.90 #Eos 0.18 10^3/uL 0.00 - 0.70 #Baso 0.06 10^3/uL 0.00 - 0.20 #Ig 0.02 10^3/uL 0.00 - 0.10 #NRBC 0.00 10^3/uL 0.00 - 0.00 Manual Diff NOT INDICATED RBC Morph NOT INDICATED Lipid Panel 10/28/2020 [facility] Cve Panel (SEE NOTE) 3 Cholesterol 138 mg/dL 131 - 200 Triglycerides 190 mg/dL High 35 - 160 HDL 59 mg/dL 29 - 86 LDL 57 mg/dL Low 65 - 175 Risk Factor 2.3 Low 3.2 - 4.4 LDL/HDL 0.97 Low 1.47 - 3.22 4 Comprehensive Metabolic Panel 10/28/2020 [facility] Comprehensive Metabo (SEE NOTE) 5 Sodium [...] Normal Procedures Date Code Description Status 01/13/2021 28353 Office/Outpatient Established Lo w MDM 20-29 Min Completed 10/25/2020 08143 Office/Outpatient Established Mo d MDM 30-39 Min Completed 09/22/2020 19240 Office/Outpatient Established Lo w MDM 20-29 Min Completed 03/31/2019 [id number] Mammogram Completed 03/16/2019 [id number] Bone Mineral Density Test Comple jason 11/19/2016 [id number] Mammogram Completed Medical Devices Description No Information [...] to Reason for Referral Status Appt Date [facility] patient is requesting an ref erral for her annual skin check, she use to follow [employer]. thank you. Scheduled 02/24/2021 [facility] [address] [facility] [place] [address] [phone] Chalo Villarreal MD Please evaluate patient for urticaria. Thank you. Closed 12/29/2020 [facility] All[facility] Immunology [address] [facility] [address] [phone]
--- OUTSIDE RECORDS SUMMARY | 2021-04-02 17:35 | CCD ---
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 Name Role Phone Petrkarynosta, Kimball Lisbeth PA-C Unavailable Unavailabl e Petrancosta, Kimball Lisbeth PA-C Unavailable Unavailabl e Petrancosta, Kimball Lisbeth PA-C Unavailable Unavailabl e Petrancosta, Kimball Lisbeth PA-C Unavailable Unavailabl e Petrancosta, Kimball Lisbeth PA-C Unavailable Unavailabl e Petrancosta, Kimball Lisbeth PA-C Unavailable Unavailabl e Petrancosta, Kimball Lisbeth PA-C Unavailable Unavailabl e Petrancosta, Kimball Lisbeth PA-C Unavailable Unavailabl e Petrancosta, Kimball Lisbeth PA-C Unavailable Unavailabl e Petrancosta, Kimball Lisbeth PA-C Unavailable Unavailabl e Petrancosta, Kimball Lisbeth PA-C Unavailable Unavailabl e Petrancosta, Kimball Lisbeth PA-C Unavailable Unavailabl e Petrancosta, Kimball Lisbeth PA-C Unavailable Unavailabl e Petrancosta, Kimball Lisbeth PA-C Unavailable Unavailabl e Petrancosta, Kimball Lisbeth PA-C Unavailable Unavailabl e Petrancosta, Kimball Lisbeth PA-C Unavailable Unavailabl e Petrancosta, Kimball Lisbeth PA-C Unavailable Unavailabl e Petrancosta, Kimball Lisbeth PA-C Unavailable Unavailabl e Petrancosta, Kimball Lisbeth PA-C Unavailable Unavailabl e Petrancosta, Kimball Lisbeth PA-C Unavailable Unavailabl e Petrancosta, Kimball Lisbeth PA-C Unavailable Unavailabl e Petrancosta, Kimball Lisbeth PA-C Unavailable Unavailabl e Petrancosta, Kimball Lisbeth PA-C Unavailable Unavailabl e Petrancosta, Kimball Lisbeth PA-C Unavailable Unavailabl e Petrancosta, Kimball Lisbeth PA-C Unavailable Unavailabl e LETTIERE, A BENJAMIN PA Unavailable Unavailable LETTIERE, A BENJAMIN PA Unavailable Unavailable LETTIERE, A BENJAMNI PA Unavailable Unavailable LETTIERE, A BENJAMIN PA Unavailable Unavailable LETTIERE, A BENJAMIN PA Unavailable Unavailable LETTIERE, A BENJAMIN PA Unavailable Unavailable LETTIERE, A BENJAMIN PA Unavailable Unavailable LETTIERE, A BENJAMIN PA Unavailable Unavailable LETTIERE, A BENJAMIN PA Unavailable Unavailable LETTIERE, A BENJAMIN PA Unavailable Unavailable LETTIERE, A BENJAMIN PA Unavailable Unavailable LETTIERE, A BENJAMIN PA Unavailable Unavailable LETTIERE, A BENJAMIN PA Unavailable Unavailable LETTIERE, A BENJAMIN PA Unavailable Unavailable LETTIERE, A BENJAMIN PA Unavailable Unavailable LETTIERE, A BENJAMIN PA Unavailable Unavailable LETTIERE, A BENJAMIN PA Unavailable Unavailable LETTIERE, A BENJAMIN PA Unavailable Unavailable LETTIERE, A BENJAMIN PA Unavailable Unavailable LETTIERE, A BENJAMIN PA Unavailable Unavailable LETTIERE, A BENJAMIN PA Unavailable Unavailable LETTIERE, A BENJAMIN PA Unavailable Unavailable LETTIERE, A BENJAMIN PA Unavailable Unavailable LETTIERE, A BENJAMIN PA Unavailable Unavailable LETTIERE, A BENJAMIN PA Unavailable Unavailable LETTIERE, A BENJAMIN PA Unavailable Unavailable LETTIERE, A BENJAMIN PA Unavailable Unavailable LETTIERE, A BENJAMIN PA Unavailable Unavailable LETTIERE, A BENJAMIN PA Unavailable Unavailable LETTIERE, A BENJAMIN PA Unavailable Unavailable LETTIERE, A BENJAMIN PA Unavailable Unavailable Pleskach, Estrella GANG HEMSTITCHING MACHINE OPERATOR Unavailable Unavailable Pleskach, Estrella GANG HEMSTITCHING MACHINE OPERATOR Unavailable Unavailable Pleskach, Estrella GANG HEMSTITCHING MACHINE OPERATOR Unavailable Unavailable Pleskach, Estrella GANG HEMSTITCHING MACHINE OPERATOR Unavailable Unavailable Pleskach, Estrella GANG HEMSTITCHING MACHINE OPERATOR Unavailable Unavailable Pleskach, Estrella GANG HEMSTITCHING MACHINE OPERATOR Unavailable Unavailable Pleskach, Estrella GANG HEMSTITCHING MACHINE OPERATOR Unavailable Unavailable Pleskach, Estrella GANG HEMSTITCHING MACHINE OPERATOR Unavailable Unavailable Pleskach, Estrella GANG HEMSTITCHING MACHINE OPERATOR Unavailable Unavailable Pleskach, Estrella GANG HEMSTITCHING MACHINE OPERATOR Unavailable Unavailable Pleskach, Estrella GANG HEMSTITCHING MACHINE OPERATOR Unavailable Unavailable Pleskach, Estrella GANG HEMSTITCHING MACHINE OPERATOR Unavailable Unavailable Pleskach, Estrella GANG HEMSTITCHING MACHINE OPERATOR Unavailable Unavailable Pleskach, Estrella GANG HEMSTITCHING MACHINE OPERATOR Unavailable Unavailable Pleskach, Estrella GANG HEMSTITCHING MACHINE OPERATOR Unavailable Unavailable Pleskach, Estrella GANG HEMSTITCHING MACHINE OPERATOR Unavailable Unavailable Pleskach, Estrella GANG HEMSTITCHING MACHINE OPERATOR Unavailable Unavailable Pleskach, Estrella GANG HEMSTITCHING MACHINE OPERATOR Unavailable Unavailable Pleskach, Estrella GANG HEMSTITCHING MACHINE OPERATOR Unavailable Unavailable Pleskach, Estrella GANG HEMSTITCHING MACHINE OPERATOR Unavailable Unavailable Pleskach, Estrella GANG HEMSTITCHING MACHINE OPERATOR Unavailable Unavailable Pleskach, Estrella GANG HEMSTITCHING MACHINE OPERATOR Unavailable Unavailable Pleskach, Estrella GANG HEMSTITCHING MACHINE OPERATOR Unavailable Unavailable Pleskach, Estrella GANG HEMSTITCHING MACHINE OPERATOR Unavailable Unavailable Pleskach, Estrella GANG HEMSTITCHING MACHINE OPERATOR Unavailable Unavailable Pleskach, Estrella GANG HEMSTITCHING MACHINE OPERATOR Unavailable Unavailable Pleskach, Estrella GANG HEMSTITCHING MACHINE OPERATOR Unavailable Unavailable Pleskach, Estrella GANG HEMSTITCHING MACHINE OPERATOR Unavailable Unavailable Pleskach, Estrella GANG HEMSTITCHING MACHINE OPERATOR Unavailable Unavailable Pleskach, Estrella GANG HEMSTITCHING MACHINE OPERATOR Unavailable Unavailable Pleskach, Estrella GANG HEMSTITCHING MACHINE OPERATOR Unavailable Unavailable Pleskach, Estrella GANG HEMSTITCHING MACHINE OPERATOR Unavailable Unavailable Pleskach, Estrella GANG HEMSTITCHING MACHINE OPERATOR Unavailable Unavailable Pleskach, Estrella GANG HEMSTITCHING MACHINE OPERATOR Unavailable Unavailable Pleskach, Estrella GANG HEMSTITCHING MACHINE OPERATOR Unavailable Unavailable Pleskach, Estrella GANG HEMSTITCHING MACHINE OPERATOR Unavailable Unavailable Pleskach, Estrella GANG HEMSTITCHING MACHINE OPERATOR Unavailable Unavailable Pleskach, Estrella GANG HEMSTITCHING MACHINE OPERATOR Unavailable Unavailable Pleskach, Estrella GANG HEMSTITCHING MACHINE OPERATOR Unavailable Unavailable Pleskach, Estrella GANG HEMSTITCHING MACHINE OPERATOR Unavailable Unavailable Pleskach, Estrella GANG HEMSTITCHING MACHINE OPERATOR Unavailable Unavailable Pleskach, Estrella GANG HEMSTITCHING MACHINE OPERATOR Unavailable Unavailable Pleskach, Estrella GANG HEMSTITCHING MACHINE OPERATOR Unavailable Unavailable Pleskach, Estrella GANG HEMSTITCHING MACHINE OPERATOR Unavailable Unavailable Roberto Madsen MD Unavailable Unavailable Roberto Madsen MD Unavailable Unavailable Roberto Madsen MD Unavailable Unavailable Roberto Madsen MD Unavailable Unavailable Roberto Madsen MD Unavailable Unavailable Roberto Madsen MD Unavailable Unavailable Roberto Madsen MD Unavailable Unavailable Roberto Madsen MD Unavailable Unavailable Roberto Madsen MD Unavailable Unavailable Roberto Madsen MD Unavailable Unavailable Roberto Madsen MD Unavailable Unavailable Roberto Madsen MD Unavailable Unavailable Roberto Madsen MD Unavailable Unavailable Cale, Roberto Hassan MD Unavailable Unavailable Cale, Roberto Hassan MD Unavailable Unavailable Cale, Roberto Hassan MD Unavailable Unavailable Cale, Roberto Hassan MD Unavailable Unavailable Cale, Roberto Hassan MD Unavailable Unavailable Cale, Roberto Hassan MD Unavailable Unavailable Cale, Roberto Hassan MD Unavailable Unavailable Cale, Roberto Hassan MD Unavailable Unavailable Cale, Roberto Hassan MD Unavailable Unavailable Cale, Roberto Hassan MD Unavailable Unavailable Cale, Roberto Hassan MD Unavailable Unavailable Cale, Roberto Hassan MD Unavailable Unavailable Cale, A Sonya JOSUE Unavailable Unavailable Cale, Roberto Hassan MD Unavailable Unavailable Cale, Roberto Hassan MD Unavailable Unavailable Cale, Roberto Hassan MD Unavailable Unavailable Cale, Roberto Hassan MD Unavailable Unavailable Cale, A Sonya JOSUE Unavailable Unavailable Cale, A Sonya JOSUE Unavailable Unavailable Cale, A Sonya JOSUE Unavailable Unavailable Cale, A Sonya JOSUE Unavailable Unavailable Cale, A Sonya JOSUE Unavailable Unavailable Cale, A Sonya JOSUE Unavailable Unavailable Cale, A Sonya JOSUE Unavailable Unavailable Cale, A Sonya JOSUE Unavailable Unavailable Cale, A Sonya JOSUE Unavailable Unavailable Cale, A Sonya JOSUE Unavailable Unavailable Cale, A Sonya JOSUE Unavailable Unavailable Cale, A Sonya JOSUE Unavailable Unavailable Cale, A Sonya JOSUE Unavailable Unavailable Cale, Roberto Hassan MD Unavailable Unavailable Cale, Roberto Hassan MD Unavailable Unavailable Cale, A Sonya JOSUE Unavailable Unavailable Cale, A Sonya JOSUE Unavailable Unavailable Cale, A Sonya JOSUE Unavailable Unavailable Cale, A Sonya JOSUE Unavailable Unavailable Cale, A Sonya JOSUE Unavailable Unavailable Cale, A Sonya JOSUE Unavailable Unavailable Cale, Roberto Hassan MD Unavailable Unavailable Cale, Roberto Hassan MD Unavailable Unavailable Cale, Roberto Hassan MD Unavailable Unavailable Cale, Roberto Hassan MD Unavailable Unavailable Cale, Roberto Hassan MD Unavailable Unavailable Cale, Roberto Hassan MD Unavailable Unavailable Cale, Roberto Hassan MD Unavailable Unavailable Cale, Roberto Hassan MD Unavailable Unavailable Cale, Roberto Hassan MD Unavailable Unavailable Cale, Roberto Hassan MD Unavailable Unavailable Cale, Roberto Hassan MD Unavailable Unavailable Cale, A Sonya JOSUE Unavailable Unavailable Cale, A Sonya JOSUE Unavailable Unavailable Cale, A Sonya JOSUE Unavailable Unavailable Cale, A Sonya JOSUE Unavailable Unavailable Cale, A Sonya JOSUE Unavailable Unavailable Cale, Roberto Hassan MD Unavailable Unavailable Cale, Roberto Hassan MD Unavailable Unavailable Cale, Roberto Hassan MD Unavailable Unavailable Cale, Roberto Hassan MD Unavailable Unavailable Cale, Roberto Hassan MD Unavailable Unavailable Cale, Roberto Hassan MD Unavailable Unavailable Cale, Roberto Hassan MD Unavailable Unavailable Cale, Roberto Hassan MD Unavailable Unavailable Cale, Roberto Hassan MD Unavailable Unavailable Roberto Madsen MD Unavailable Unavailable Roberto Madsen MD Unavailable Unavailable Roberto Madsen MD Unavailable Unavailable Roberto Madsen MD Unavailable Unavailable Roberto Madsen MD Unavailable Unavailable Roberto Madsen MD Unavailable Unavailable MALENA, CARLOS PA Unavailable Unavailable MALENA, CARLOS PA Unavailable Unavailable MALENA, CARLOS PA Unavailable Unavailable MALENA, CARLOS PA Unavailable Unavailable MALENA, CARLOS PA Unavailable Unavailable MALENA, CARLOS PA Unavailable Unavailable MALENA, CARLOS PA Unavailable Unavailable MALENA, CARLOS PA Unavailable Unavailable MALENA, CARLOS PA Unavailable Unavailable MALENA, CARLOS PA Unavailable Unavailable MALENA, CARLOS PA Unavailable Unavailable MALENA, CARLOS PA Unavailable Unavailable MALENA, CARLOS PA Unavailable Unavailable MALENA, CARLOS PA Unavailable Unavailable MALENA, CARLOS PA Unavailable Unavailable MALENA, CARLOS PA Unavailable Unavailable MALENA, CARLOS PA Unavailable Unavailable MALENA, CARLOS PA Unavailable Unavailable MALENA, CARLOS PA Unavailable Unavailable MALENA, CARLOS PA Unavailable Unavailable MALENA, CARLOS PA Unavailable Unavailable MALENA, CARLOS PA Unavailable Unavailable MALENA, CARLOS PA Unavailable Unavailable MALENA, CARLOS PA Unavailable Unavailable MALENA, CARLOS PA Unavailable Unavailable MALENA, CARLOS PA Unavailable Unavailable MALENA, CARLOS PA Unavailable Unavailable MALENA, CARLOS PA Unavailable Unavailable MALENA, CARLOS PA Unavailable Unavailable MALENA, CARLOS PA Unavailable Unavailable MALENA, CARLOS PA Unavailable Unavailable MALENA, CARLOS PA Unavailable Unavailable MALENA, CARLOS PA Unavailable Unavailable MALENA, CARLOS PA Unavailable Unavailable MALENA, CARLOS PA Unavailable Unavailable MALENA, CARLOS PA Unavailable Unavailable Roberto Madsen MD Unavailable Unavailable Roberto Madsen MD Unavailable Unavailable Roberto Madsen MD Unavailable Unavailable Roberto Madsen MD Unavailable Unavailable Roberto Madsen MD Unavailable Unavailable Roberto Madsen MD Unavailable Unavailable Roberto Madsen MD Unavailable Unavailable Roberto Madsen MD Unavailable Unavailable Roberto Madsen MD Unavailable Unavailable Roberto Madsen MD Unavailable Unavailable Roberto Madsen MD Unavailable Unavailable Roberto Madsen MD Unavailable Unavailable Roberto Madsen MD Unavailable Unavailable Roberto Madsen MD Unavailable Unavailable Roberto Madsen MD Unavailable Unavailable Cale, Roberto Hassan MD Unavailable Unavailable Cale, Roberto Hassan MD Unavailable Unavailable Cale, Roberto Hassan MD Unavailable Unavailable Cale, Roberto Hassan MD Unavailable Unavailable Cale, Roberto Hassan MD Unavailable Unavailable Cale, Roberto Hassan MD Unavailable Unavailable Cale, Roberto Hassan MD Unavailable Unavailable Cale, Roberto Hassan MD Unavailable Unavailable Cale, Roberto Hassan MD Unavailable Unavailable Cale, Roberto Hassan MD Unavailable Unavailable Cale, Roberto Hassan MD Unavailable Unavailable Cale, Roberto Hassan MD Unavailable Unavailable Cale, Roberto Hassan MD Unavailable Unavailable Cale, Roberto Hassan MD Unavailable Unavailable Cale, Roberto Hassan MD Unavailable Unavailable Cale, Roberto Hassan MD Unavailable Unavailable Cale, Roberto Hassan MD Unavailable Unavailable Cale, Roberto Hassan MD Unavailable Unavailable Cale, A Sonya JOSUE Unavailable Unavailable Cale, A Sonya JOSUE Unavailable Unavailable Cale, A Sonya JOSUE Unavailable Unavailable Cale, A Sonya JOSUE Unavailable Unavailable Cale, A Sonya JOSUE Unavailable Unavailable Cale, Roberto Hassan MD Unavailable Unavailable Cale, Roberto Hassan MD Unavailable Unavailable Cale, A Sonya JOUSE Unavailable Unavailable Cale, A Sonya JOSUE Unavailable Unavailable Cale, A Sonya JOSUE Unavailable Unavailable Cale, A Sonya JOSUE Unavailable Unavailable Cale, Roberto Hassan MD Unavailable Unavailable Cale, Roberto Hassan MD Unavailable Unavailable Cale, Roberto Hassan MD Unavailable Unavailable Cale, Roberto Hassan MD Unavailable Unavailable Cale, A Sonya JOSUE Unavailable Unavailable Cale, A Sonya JOSUE Unavailable Unavailable Cale, A Sonya JOSUE Unavailable Unavailable Cale, A Sonya JOSUE Unavailable Unavailable Cale, Roberto Hassan MD Unavailable Unavailable Cale, Roberto Hassan MD Unavailable Unavailable Cale, Roberto Hassan MD Unavailable Unavailable Cale, Roberto Hassan MD Unavailable Unavailable Cale, Roberto Hassan MD Unavailable Unavailable Cale, Roberto Hassan MD Unavailable Unavailable Acle, Roberto Hassan MD Unavailable Unavailable Cale, Roberto Hassan MD Unavailable Unavailable Cale, Roberto Hassan MD Unavailable Unavailable Cale, Roberto Hassan MD Unavailable Unavailable Cale, Roberto Hassan MD Unavailable Unavailable Cale, Roberto Hassan MD Unavailable Unavailable Cale, Roberto Hassan MD Unavailable Unavailable Cale, Roberto Hassan MD Unavailable Unavailable Cale, Roberto Hassan MD Unavailable Unavailable Cale, Roberto Hassan MD Unavailable Unavailable Cale, Roberto Hassan MD Unavailable Unavailable Cale, Roberto Hassan MD Unavailable Unavailable Cale, Roberto Hassan MD Unavailable Unavailable Cale, Roberto Hassan MD Unavailable Unavailable Cale, Roberto Hassan MD Unavailable Unavailable Cale, Roberto Hassan MD Unavailable Unavailable Cale, Roberto Hassan MD Unavailable Unavailable Cale, Roberto Hassan MD Unavailable Unavailable Cale, Roberto Hassan MD Unavailable Unavailable Cale, Roberto Hassan MD Unavailable Unavailable Cale, Roberto Hassan MD Unavailable Unavailable Cale, Roberto Hassan MD Unavailable Unavailable Cale, Roberto Hassan MD Unavailable Unavailable Cale, Roberto Hassan MD Unavailable Unavailable Re-disclosure Warning The records that you are about to access may contain information from federally-assisted alcohol or drug abuse programs. If such information is present, then the following federally mandated warning applies: This information has been disclosed to you from records protected by federal confidentiality rules (42 CFR part 2). The federal rules prohibit you from making any further disclosure of this information unless further disclosure is expressly permitted by the written consent of the person to whom it pertains or as otherwise permitted by 42 CFR part 2. A general authorization for the release of medical or other information is NOT sufficient for this purpose. The Federal rules restrict any use of the information to criminally investigate or prosecute any alcohol or drug abuse patient.The records that you are about to access may contain highly sensitive health information, the redisclosure of which is protected by Article 27-F of the [facility] Public Health law. If you continue you may have access to information: Regarding HIV / AIDS; Provided by facilities licensed or operated by the [facility] Office of Mental Health; or Provided by the [facility] Office for People With Developmental Disabilities. If such information is present, then the following [facility] mandated warning applies: This information has been disclosed to you from confidential records which are protected by state law. State law prohibits you from making any further disclosure of this information without the specific written consent of the person to whom it pertains, or as otherwise permitted by law. Any unauthorized further disclosure in violation of state law may result in a fine or skilled nursing sentence or both. A general authorization for the release of medical or other information is NOT sufficient authorization for further disc losure. Allergies and Adverse Reactions Type Description Substance Reaction Status Data Source(s ) No Known Allergies No Known Allergies [facility] Family History Family Member Name Family Member Gender Family Member Status Date o f Status Description Data Source(s) Unknown Male Problem [facility] ([facility]) Unknown Unknown Problem [facility] ([facility] Unknown Male Problem [facility] ([facility]) () Unknown Unknown Problem [facility] ([facility]) father Encounters Encounter Providers Location Date Indications Data Source(s ) Outpatient Attender: CARLOS Frankela ry 03/09/2021 04:35:00 PM EDT [facility] ([facility] Outpatient Attender: Estrella Irwin [facility] Main Office 03/07/2021 1 1:45:00 AM EDT [facility] ([facility] [place] [address] [facility] [address] 02/24/2021 12:00:00 AM EDT eCW1 ([facility]) Outpatient Attender: Estrella Irwin [facility] Main Office 01/13/2021 1 1:30:00 AM EDT [facility] ([facility] Outpatient Attender: [facility]a [facility] MDConsultant: Sonya grant MD 10/28/2020 02:07:00 PM EDT - 10/28/2020 03:07:00 PM EDT [facility] Outpatient Attender: Sonya Madsen MD Main Office 10/25/2020 01:15:0 0 PM EDT [facility] ([facility] Outpatient Attender: Lisbeth Worthy PA-C Main Office 09/22/2020 10:30:00 AM EDT [facility] ([facility] Outpatient Attender: BENJAMIN Frankel jose 09/20/2020 04:25:00 PM EDT [facility] ([facility]) Outpatient Attender: Estrella Irwin [facility] Main Office 02/16/2020 0 1:45:00 PM EDT [facility] ([facility] Immunizations Vaccine Date Status Description Data Source(s) COVID-19 VACCINE Moderna 03/15/2021 12:00:00 AM EDT completed [facility] Vaccine Series Complete: YESThis Data wa s Submitted to [facility] Via [facility]. Moderna Sars-(Covid-19) vaccine, mRNA, LNP-S, PF, 100 mcg/ 0.5 mL 08/19/2020 12:00:00 AM EDT completed [facility] ([facility] COVID-19 VACCINE Moderna 08/19/2020 12:00:00 AM EDT completed [facility] Vaccine Series Complete: YESThis Data wa s Submitted to [facility] Via [employer]. COVID-19 VACCINE Moderna 07/22/2020 12:00:00 AM EST completed [facility] Vaccine Series Complete: NOThis Data was Submitted to [facility] Via [employer]. Moderna Sars-(Covid-19) vaccine, mRNA, LNP-S, PF, 100 mcg/ 0.5 mL 07/21/2020 11:00:00 PM EST completed [facility] ([facility] INFLUENZA VIRUS VACCINE QUADRIVAL SPLIT 2020-21(65 YR UP)/PF 03/01/2020 12:00:00 AM EDT completed [facility] Pneumococcal conjugate PCV 13 02/16/2020 02:57:00 PM EDT completed [facility] ([facility] Medications Medication Brand Name Start Date Product Form Dose Route Admi nistrative Instructions Pharmacy Instructions Status Indications Reaction Description Data Source(s) carbamide peroxide 65 MG/ML Otic Solution [Debrox] Debrox 03/07/2021 12:00:00 AM EDT AURICULAR active [facility] ([facility] 0.05 % 02/25/2021 12:00:00 AM EDT cream 45 MIX TUBE INTO 1/2 JAR OF CERAVE CREAM TWO TIMES A DAY DIRECTED FOR 14 DAYS MIX TUBE INTO 1/2 JAR OF CERAVE CREAM TWO TIMES A DAY DIRECTED FOR 14 DAYS SOLD: 02/25/2021 [facility] 5 mg 02/25/2021 12:00:00 AM EDT tablet 30 TAKE ONE TABLET BY MOUTH IN THE EVENING ONCE A DAY TAKE ONE TABLET BY MOUTH IN THE EVENING ONCE A DAY CARITO [facility] levocetirizine dihydrochloride 5 MG Oral Tablet Levocetirizine Dihydrochloride 5 MG Levocetirizine Dihydrochloride 5 MG 02/24/2021 12:00:00 AM EDT 1.0 {tablet_in_the_evening} active Levoceti rizine Dihydrochloride 5 MG eCW1 ([facility]) Betamethasone 0.5 MG/ML Topical Cream Betamethasone Di propionate 0.05 % Betamethasone Dipropionate 0.05 % 02/24/2021 12:00:00 AM EDT active Betamethasone Dipropionate 0.05 % eCW1 ([facility]) hydroquinone 40 MG/ML Topical Cream Hydroquinone 4 % Hydroqu inone 4 % 02/24/2021 12:00:00 AM EDT 1.0 {application} active Hydroquinone 4 % eCW1 ([facility]) Azelastine HCL (Nasal) Azelastine HCL ([facility]al) 12/29/2020 12:00:00 AM E DT active [facility] ([facility]) Fluticasone Propionate Fluticasone Propionate 12/29/2020 12:00:00 AM E DT active [facility] ([facility]) 0.1 % 09/21/2020 12:00:00 AM EDT ointment 45 APPLY TO AFFECTED AREA(S) TWO TIMES A DAY FOR 10 DAYS, THEN STOP APPLY TO AFFECTED AREA(S) TWO TIMES A DA Y FOR 10 DAYS, THEN STOP SOLD: 09/22/2020 [facility] Triamcinolone Acetonide 0.001 MG/MG Topical Ointment Triamci nolone Acetonide 09/20/2020 12:00:00 AM EDT active [facility] ([facility]) Covid-19 vaccine, Unspecified 08/19/2020 12:00:00 AM EDT completed [facility] ([facility]) Medication administered onsite Covid-19 vaccine, Unspecified 07/22/2020 12:00:00 AM EST completed [facility] ([facility]) Medication administered onsite Insurance Providers Payer name Policy type / Coverage type Policy ID Covered green party ID Covered green party's relationship to negron Policy Negron Plan Information Alley Urena (pr) [facility] Part B [id number] Self [id number] [facility] (pr) [facility] Part B [id number] Self [id number] MEDICARE COMPLETE [id number] [facility] Medicare Commercial [id number] Self [id number] [facility]) Commercial [id number] Self [id number] ANS-Medicare Part B [id number] [employer] Medicare Commercial [id number] Self [id number] [facility]/Medicare Commercial [id number] Self [id number] [facility] Medicare Commercial [id number] Self [id number] [facility] Medicare Commercial [id number] Self [id number] [facility] Medicare Commercial [id number] Self [id number] ANSI-Medicare Part B [id number] [facility] [facility]Medicare Commercial [id number] Self [id number] [facility] Medicare Commercial [id number] Self [id number] [facility] Medicare Commercial [id number] Self [id number] [facility] Medicare Commercial [id number] Self [id number] [facility] Medicare Commercial [id number] Self [id number] [place] [facility]icare [facility] Commercial [id number] Self [id number] [place] [facility] Commercial [id number] Self [id number] [place] [facility] Commercial [id number] Self [id number] [place] [facility] Commercial [id number] Self [id number] [place] [facility]are [facility] Commercial [id number] Self [id number] MEDICARE COMPLETE[facility] O [id number] S [id number] [facility] Medicare Commercial [id number] Self [id number] [employer] MEDICARE -CLINIC [id number] 18 [id number] [employer] MEDICARE -PHYSICIAN [id number] 18 [id number] [place] [facility]Medicare Sol[facility] Commercial [id number] Self [facility] Commercial [id number] Self [facility] [id number] SP [id number] MEDICARE COMPLETE [id number] SP [id number] [facility] MEDICARE-O/P [id number] 18 [id number] MEDICARE COMPLETE [id number] SP [id number] Problems, Conditions, and Diagnoses Code Display Name Description Problem Type Effective Dates Data Source(s) I10 Essential (primary) hypertension Essential (primary) h ypertension Diagnosis 10/28/2020 02:07:00 PM EDT [facility] [id number] [id number] Hx of basal cell carcinoma Problem 12:00:00 AM EDT eCW1 ([facility]) [id number] Pure hypercholesterolemia Pure hypercholesterolemia Pr oblem 12/29/2020 12:00:00 AM EDT [facility] ([facility]) [id number] Essential hypertension Essential hypertension Problem 12/29/2020 12:00:00 AM EDT [facility] ([facility]) Surgeries/Procedures Procedure Description Date Indications Data Source(s) Remove Impact Cerumen Irrigati 03/09/2021 12:00:00 AM EDT [facility] ([facility]) OFFICE OUTPATIENT VISIT 15 MINUTES 03/09/2021 12:00:00 AM EDT MED[facility] ([facility], [facility]) RMVL IMPACTED CERUMEN SPX 1/BOTH EARS 03/07/2021 12:00 :00 AM EDT [facility] ([facility] OFFICE OUTPATIENT VISIT 15 MINUTES 03/07/2021 12:00:00 AM EDT [facility] ([facility] OFFICE OUTPATIENT VISIT 15 MINUTES 01/13/2021 12:00:00 AM EDT [facility] ([facility] OFFICE OUTPATIENT NEW 45 MINUTES 12/29/2020 12:00:00 A M EDT [facility] ([facility]) OFFICE OUTPATIENT VISIT 25 MINUTES 10/25/2020 12:00:00 AM EDT [facility] ([facility] OFFICE OUTPATIENT VISIT 15 MINUTES 09/22/2020 12:00:00 AM EDT [facility] ([facility] OFFICE OUTPATIENT NEW 30 MINUTES 09/20/2020 12:00:00 A M EDT MED[facility] ([facility], [facility]) Results ID Date Data Source [id number] 10/28/2020 02:15:00 PM EDT [facility] ([facility] Name Value Range Interpretation Code Description Data Michell rce(s) Supporting Document(s) Comprehensive [facility] Laboratory test result [facility] ([facility] Is patient fasting? N Potassium 4.4 meq/L 3.6-5.0 [facility] ([facility] Is patient fasting? N Sodium 138 meq/L 134-153 [facility] ([facility] Is patient fasting? N Co2 24 meq/L 22-30 [facility] ([facility] Is patient fasting? N Chloride 102 meq/L 98-107 [facility] ([facility] Is patient fasting? N Glucose 103 mg/dL 70-99 [facility] ([facility] Is patient fasting? N BUN/Creat 12 8-27 [facility] ([facility] Is patient fasting? N BUN 11 mg/dL 7-21 [facility] ([facility] Is patient fasting? N Creatinine 0.9 mg/dL 0.7-1.5 [facility] ([facility] Is patient fasting? N Albumin 4.8 g/dL 3.9-5.0 [facility] ([facility] Is patient fasting? N Total Protein 7.2 g/dL 6.3-8.2 [facility] ([facility] Is patient fasting? N A/G Ratio 2.0 0.8-2.0 [facility] ([facility] Is patient fasting? N Globulin 2.4 GM/DL 2.4-3.2 [facility] ([facility] Is patient fasting? N Calcium 10.3 mg/dL 8.4-10.2 [facility] ([facility] Is patient fasting? N Alkaline Phos 138 U/L 38-126 [facility] ([facility] Is patient fasting? N Sgot/Ast 21 U/L 5-40 [facility] ([facility] Is patient fasting? N Total Bili Laboratory test result 0.2-1.3 ME DENT ([facility] Is patient fasting? N Anion Gap 12.0 mmol/L 8.0-16.0 [facility] ([facility] Is patient fasting? N SGPT/Alt 22 U/L 7-56 [facility] ([facility] Is patient fasting? N Age 75 yrs [facility] ([facility] Is patient fasting? N Non-Aa GFR Laboratory test result [facility] ([facility] Is patient fasting? N Afr Amer GFR Laboratory test result [facility] ([facility] Is patient fasting? N ID Date Data Source [id number] 10/28/2020 02:15:00 PM EDT [facility] ([facility] Name Value Range Interpretation Code Description Data Michell rce(s) Supporting Document(s) Cholesterol 138 mg/dL 131-200 [facility] ([facility] Is patient fasting? N Cve Panel Laboratory test result [facility] ([facility] Is patient fasting? N Triglycerides 190 mg/dL 35-160 [facility] ([facility] Is patient fasting? N HDL 59 mg/dL 29-86 [facility] ([facility] Is patient fasting? N LDL/HDL 0.97 1.47-3.22 [facility] ([facility] Is patient fasting? N Risk Factor 2.3 3.2-4.4 [facility] ([facility] Is patient fasting? N LDL 57 mg/dL 65-175 [facility] ([facility] Is patient fasting? N ID Date Data Source [id number] 10/28/2020 02:15:00 PM EDT [facility] ([facility] Name Value Range Interpretation Code Description Data Michell rce(s) Supporting Document(s) CBC W/Automated Diff Laboratory test result [facility] ([facility] Is patient fasting? N WBC 7.7 10^3/uL 4.2-11.0 [facility] ([facility] Is patient fasting? N RBC 4.94 10^6/uL 4.20-5.40 [facility] ([facility] Is patient fasting? N Hemoglobin 15.3 g/dL 12.0-16.0 [facility] ([facility] Is patient fasting? N MCV 92.1 fL 81.0-101 [facility] ([facility] Is patient fasting? N Hematocrit 45.5 % 37.0-47.0 [facility] ([facility] Is patient fasting? N MCH 31.0 pg 27.0-34.0 [facility] ([facility] Is patient fasting? N RDW 12.1 % 11.5-14.5 [facility] ([facility] Is patient fasting? N Platelets 229 10^3/uL 150-450 [facility] ([facility] Is patient fasting? N MCHC 33.6 g/dL 31.0-36.0 [facility] ([facility] Is patient fasting? N MPV 9.3 fL 7.4-10.4 [facility] ([facility] Is patient fasting? N Neut 59.0 % 37.0-80.0 [facility] ([facility] Is patient fasting? N Eos 2.3 % 0.0-7.0 [facility] ([facility] Is patient fasting? N Duval 5.5 % 3.0-8.0 [facility] ([facility] Is patient fasting? N Lymph 32.1 % 25.0-40.0 [facility] ([facility] Is patient fasting? N %Ig 0.3 % 0.0-0.0 [facility] ([facility] Is patient fasting? N %NRBC 0.0 % 0.0-0.0 [facility] ([facility] Is patient fasting? N Baso 0.8 % 0.0-2.5 [facility] ([facility] Is patient fasting? N #Lymph 2.47 10^3/uL 0.60-3.40 [facility] ([facility] Is patient fasting? N #Neut 4.54 10^3/uL 2.00-6.90 [facility] ([facility] Is patient fasting? N #Duval 0.42 10^3/uL 0.00-0.90 [facility] ([facility] Is patient fasting? N #Eos 0.18 10^3/uL 0.00-0.70 [facility] ([facility] Is patient fasting? N #Baso 0.06 10^3/uL 0.00-0.20 [facility] ([facility] Is patient fasting? N #NRBC 0.00 10^3/uL 0.00-0.00 [facility] ([facility] Is patient fasting? N #Ig 0.02 10^3/uL 0.00-0.10 [facility] ([facility] Is patient fasting? N Manual Diff Laboratory test result MEDEN T ([facility] Is patient fasting? N RBC Morph Laboratory test result [facility] ([facility] Is patient fasting? N ID Date Data Source [id number] 10/28/2020 05:55:00 PM EDT [facility] Name Value Range Interpretation Code Description Data Michell rce(s) Supporting Document(s) [facility] Cholesterol [Mass/volume] in Serum or Plasma 138 MG/DL 131 - 200 [facility] Deprecated Triglyceride [Mass/volume] in Serum or Plasma 190 MG/DL 3 5 - 160 H [facility] HDL 59 MG/DL 29 - 86 [facility] Cholesterol in LDL [Mass/volume] in Serum or Plasma by Direc t assay 57 mg/dL 65 - 175 L [facility] Cholesterol.total/Cholesterol in HDL [Mass Ratio] in Serum o r Plasma 2.3 3.2 - 4.4 L [facility] LDL/HDL 0.97 1.47 - 3.22 L [facility] CVE RISK CHOL/HDL LDL/HDLMEN: 1/2 AVERAGE 3.43 1.00 AVERAGE 4.97 3.55 2X AVERAGE 9.55 6.25 3X AVERAGE 23.99 7.99WOMEN: 1/2 AVERAGE 3.27 1.47 AVERAGE 4.44 3.22 2X AVERAGE 7.05 5.03 3X AVERAGE 11.04 6.14 ID Date Data Source [id number] 10/28/2020 05:55:00 PM EDT [facility] Name Value Range Interpretation Code Description Data Michell rce(s) Supporting Document(s) COMPREHENSIVE METABOLIC PANEL [facility] COMPREHENSIVE METABOLIC PANEL Sodium [Moles/volume] in Serum or Plasma 138 mEq/L 134 - 153 [facility] Potassium [Moles/volume] in Serum or Plasma 4.4 mEq/L 3.6 - 5.0 [facility] Chloride [Moles/volume] in Serum or Plasma 102 mEq/L 98 - 107 [facility] Carbon dioxide, total [Moles/volume] in Serum or Plasma 24 MEQ/L 22 - 30 [facility] Glucose [Mass/volume] in Serum or Plasma 103 MG/DL 70 - 99 H [facility] BUN 11 MG/DL 7 - 21 [facility] Creatinine [Mass/volume] in Serum or Plasma 0.9 MG/DL 0.7 - 1.5 [facility] BUN/CREAT 12 8 - 27 [facility] Protein [Mass/volume] in Serum or Plasma 7.2 G/DL 6.3 - 8.2 [facility] Albumin [Mass/volume] in Serum or Plasma 4.8 G/DL 3.9 - 5.0 [facility] Globulin [Mass/volume] in Serum by calculation 2.4 GM/DL 2.4 - 3.2 [facility] A/G RATIO 2.0 0.8 - 2.0 [facility] Calcium [Mass/volume] in Serum or Plasma 10.3 MG/DL 8.4 - 10.2 H [facility] Bilirubin.total [Mass/volume] in Serum or Plasma <0.7 MG/DL 0.2 - 1.3 [facility] Alkaline phosphatase [Enzymatic activity/volume] in Serum or Plasma 138 U/L 38 - 126 H [facility] Aspartate aminotransferase [Enzymatic activity/volume] in Serum or Plasma 21 U/L 5 - 40 [facility] Alanine aminotransferase [Enzymatic activity/volume] in Seru m or Plasma 22 U/L 7 - 56 [facility] Anion gap 3 in Serum or Plasma 12.0 mmol/L 8.0 - 16.0 [facility] AGE 75 yrs [facility] NON-AA GFR >60 mL/min [facility] AFR AMER GFR >60 [facility] Male GFR In terprentation 20-49 yrs >60 mL/min Normal 50-59 yrs >56 mL/min Normal 60-69 yrs >49 mL/min Normal 70-79yrs >42 mL/min Normal 80 and above >35 mL/min Normal Female GFR Interpretation 20-39 yrs >60 mL/min Normal 40-49 yrs >58 mL/min Normal 50-59 yrs >51 mL/min Normal 60-69 yrs >45 mL/min Normal 70-79 yrs >39 mL/min Normal 80 and above >32 mL/min Normal ID Date Data Source [id number] 10/28/2020 02:41:00 PM EDT [facility] Name Value Range Interpretation Code Description Data Michell rce(s) Supporting Document(s) CBC W/AUTOMATED DIFF [facility] COMPLETE BLOOD COUNT Leukocytes [#/volume] in Blood by Automated count 7.7 10^3/uL 4.2 - 1 1.0 [facility] Erythrocytes [#/volume] in Blood by Automated count 4.94 10^6/uL 4. 20 - 5.40 [facility] Hemoglobin [Mass/volume] in Blood 15.3 g/dL 12.0 - 16.0 [facility] Hematocrit [Volume Fraction] of Blood by Automated count 45.5 % 3 7.0 - 47.0 [facility] Erythrocyte mean corpuscular volume [Entitic volume] by Auto mated count 92.1 fL 81.0 - 101 [facility] Erythrocyte mean corpuscular hemoglobin [Entitic mass] by Automated count 31.0 pg 27.0 - 34.0 [facility] Erythrocyte mean corpuscular hemoglobin concentration [Mass/volume] by Automated count 33.6 g/dL 31.0 - 36.0 [facility] Erythrocyte distribution width [Ratio] by Automated count 12.1 % 11.5 - 14.5 [facility] Platelets [#/volume] in Blood by Automated count 229 10^3/uL 150 - 45 0 [facility] Platelet mean volume [Entitic volume] in Blood by Automated count 9.3 fL 7.4 - 10.4 [facility] Neutrophils/100 leukocytes in Blood by Automated count 59.0 % 37. 0 - 80.0 [facility] Lymphocytes/100 leukocytes in Blood by Manual count 32.1 % 25.0 - 40.0 [facility] Monocytes/100 leukocytes in Blood by Automated count 5.5 % 3.0 - 8.0 [facility] Eosinophils/100 leukocytes in Blood by Automated count 2.3 % 0.0 - 7.0 [facility] Basophils/100 leukocytes in Blood by Automated count 0.8 % 0.0 - 2.5 [facility] %IG 0.3 % 0.0 - 0.0 [facility] %NRBC 0.0 % 0.0 - 0.0 [facility] Neutrophils [#/volume] in Blood by Automated count 4.54 10^3/uL 2.00 - 6.90 [facility] Lymphocytes [#/volume] in Blood by Automated count 2.47 10^3/uL 0.60 - 3.40 [facility] Monocytes [#/volume] in Blood by Automated count 0.42 10^3/uL 0.00 - 0.90 [facility] Eosinophils [#/volume] in Blood by Automated count 0.18 10^3/uL 0.00 - 0.70 [facility] Basophils [#/volume] in Blood by Automated count 0.06 10^3/uL 0.00 - 0.20 [facility] #IG 0.02 10^3/uL 0.00 - 0.10 [facility] #NRBC 0.00 10^3/uL 0.00 - 0.00 [facility] MANUAL DIFF NOT INDICATED [facility] RBC MORPH NOT INDICATED [facility] Procedure Social History Code Duration Value Status Description Data Source(s ) Smoking 03/07/2021 12:00:00 AM EDT Patient has never smoked co mpleted Patient has never smoked [facility] ([facility] Smoking 02/24/2021 12:00:00 AM EDT Never Smoker completed Never S norbert eCW1 ([facility]) Smoking 12/29/2020 12:00:00 AM EDT Patient has never smoked co mpleted Patient has never smoked [facility] ([facility]) Vital Signs ID Date Data Source UNK Name Value Range Interpretation Code Description Data Source(s) Systolic blood pressure 144 mm[Hg] 144 mm[Hg] EDENT ([facility]) Diastolic blood pressure 80 mm[Hg] 80 mm[Hg] [facility] ([facility]) Heart rate 75 /min 75 /min [facility] ([facility]) Respiratory rate 18 /min 18 /min [facility] Oxygen saturation in Arterial blood by Pulse oximetry 97 % 97 % [facility] Body temperature 98.1 [degF] 98.1 [degF] [facility] ([facility]) Body weight 148.00 [lb_av] 148.00 [lb_av] MEDEN T ([facility]) Body height 63 [in_i] 63 [in_i] [facility] ([facility]) 5'3" Body mass index (BMI) [Ratio] 26.2 kg/m2 26.2 k g/m2 [facility] Diastolic blood pressure 69 mm[Hg] 69 mm[Hg] [facility] ([facility] Diastolic blood pressure 90 mm[Hg] 90 mm[Hg] [facility] ([facility] Systolic blood pressure 126 mm[Hg] 126 mm[Hg] [facility] Systolic blood pressure 150 mm[Hg] 150 mm[Hg] EDENT ([facility] Heart rate 16 /min 16 /min [facility] ([facility] Body temperature 96.4 [degF] 96.4 [degF] [facility] ([facility] Respiratory rate 16 /min 16 /min [facility] ( [facility] Body height 62 [in_i] 62 [in_i] [facility] ([facility] 5'2" Body weight 149.12 [lb_av] 149.12 [lb_av] MEDEN T ([facility] Oxygen saturation in Arterial blood by Pulse oximetry 96 % 96 % [facility] ([facility] [place] body weight 110 [lb_av] 110 [lb_av] MED[facility] T ([facility] Body mass index (BMI) [Ratio] 27.3 kg/m2 27.3 k g/m2 [facility] ([facility] Oxygen saturation in Arterial blood by Pulse oximetry 98 % 98 % [facility] ([facility] Body mass index (BMI) [Ratio] 27.1 kg/m2 27.1 k g/m2 [facility] ([facility] Systolic blood pressure 149 mm[Hg] 149 mm[Hg] M EDENT ([facility] Heart rate 66 /min 66 /min [facility] ([facility] Body temperature 97.0 [degF] 97.0 [degF] [facility] ([facility] Respiratory rate 17 /min 17 /min [facility] ( [facility] Diastolic blood pressure 74 mm[Hg] 74 mm[Hg] [facility] ([facility] Systolic blood pressure 122 mm[Hg] 122 mm[Hg] M EDENT ([facility] Diastolic blood pressure 72 mm[Hg] 72 mm[Hg] [facility] ([facility] Body height 62 [in_i] 62 [in_i] [facility] ([facility] 5'2" Body weight 148.12 [lb_av] 148.12 [lb_av] MED[facility] T ([facility] [place] body weight 110 [lb_av] 110 [lb_av] MED[facility] T ([facility] Respiratory rate 18 /min 18 /min [facility] ( [facility]) Heart rate 64 /min 64 /min [facility] Systolic blood pressure 126 mm[Hg] 126 mm[Hg] M EDENT ([facility]) Diastolic blood pressure 78 mm[Hg] 78 mm[Hg] [facility] ([facility]) Body height 62 [in_i] 62 [in_i] [facility] 5'2" Body weight 148.50 [lb_av] 148.50 [lb_av] MEDEN T ([facility]) Body temperature 98.3 [degF] 98.3 [degF] [facility] ([facility]) Oxygen saturation in Arterial blood by Pulse oximetry 97 % 97 % [facility] ([facility]) Body mass index (BMI) [Ratio] 27.2 kg/m2 27.2 k g/m2 [facility] ([facility]) Systolic blood pressure 166 mm[Hg] 166 mm[Hg] M EDENT ([facility] Diastolic blood pressure 80 mm[Hg] 80 mm[Hg] [facility] ([facility] recheck Heart rate 72 /min 72 /min [facility] ([facility] Body temperature 97.3 [degF] 97.3 [degF] [facility] ([facility] Body weight 146.00 [lb_av] 146.00 [lb_av] MED[facility] T ([facility] Respiratory rate 15 /min 15 /min [facility] ( [facility] Body height 62 [in_i] 62 [in_i] [facility] ([facility] 5'2" [place] body weight 110 [lb_av] 110 [lb_av] MED[facility] T ([facility] Body mass index (BMI) [Ratio] 26.7 kg/m2 26.7 k g/m2 [facility] ([facility] Diastolic blood pressure 78 mm[Hg] 78 mm[Hg] [facility] ([facility] Systolic blood pressure 148 mm[Hg] 148 mm[Hg] M EDENT ([facility] recheck Heart rate 62 /min 62 /min [facility] ([facility] Systolic blood pressure 153 mm[Hg] 153 mm[Hg] M EDENT ([facility] Diastolic blood pressure 80 mm[Hg] 80 mm[Hg] [facility] ([facility] Systolic blood pressure 141 mm[Hg] 141 mm[Hg] M EDENT ([facility] Diastolic blood pressure 79 mm[Hg] 79 mm[Hg] [facility] ([facility] Body temperature 97.0 [degF] 97.0 [degF] [facility] ([facility] Respiratory rate 17 /min 17 /min [facility] ( [facility] Body height 62 [in_i] 62 [in_i] [facility] ([facility] 5'2" Body weight 150.38 [lb_av] 150.38 [lb_av] MED[facility] T ([facility] Oxygen saturation in Arterial blood by Pulse oximetry 9394 % 9394 % [facility] ([facility] [place] body weight 110 [lb_av] 110 [lb_av] [facility] T ([facility] Body mass index (BMI) [Ratio] 27.5 kg/m2 27.5 k g/m2 [facility] ([facility] Systolic blood pressure 173 mm[Hg] 173 mm[Hg] [facility] Diastolic blood pressure 86 mm[Hg] 86 mm[Hg] MED[facility] ([facility], [facility]) Heart rate 69 /min 69 /min [facility] ([facility]) Respiratory rate 16 /min 16 /min [facility]) Oxygen saturation in Arterial blood by Pulse oximetry 98 % 98 % [facility]) Body temperature 97.5 [degF] 97.5 [degF] [facility] ([facility], [facility]) Body weight 140.00 [lb_av] 140.00 [lb_av] MEDEN T ([facility], [facility]) Body height 63 [in_i] 63 [in_i] [facility] ([facility]) 5'3" Body mass index (BMI) [Ratio] 24.8 kg/m2 24.8 k g/m2 [facility]) Diastolic blood pressure 77 mm[Hg] 77 mm[Hg] [facility] ([facility] recheck Systolic blood pressure 164 mm[Hg] 164 mm[Hg] [facility] Diastolic blood pressure 81 mm[Hg] 81 mm[Hg] [facility] ([facility] Systolic blood pressure 160 mm[Hg] 160 mm[Hg] M [facility] ([facility] recheck Oxygen saturation in Arterial blood by Pulse oximetry 97 % 97 % [facility] ([facility] [place] body weight 110 [lb_av] 110 [lb_av] [facility] T ([facility] Body mass index (BMI) [Ratio] 26.9 kg/m2 26.9 k g/m2 [facility] ([facility] Heart rate 67 /min 67 /min [facility] ([facility] Body temperature 98.2 [degF] 98.2 [degF] [facility] ([facility] Respiratory rate 16 /min 16 /min [facility] ( [facility] Body height 62 [in_i] 62 [in_i] [facility] ([facility] 5'2" Body weight 147.25 [lb_av] 147.25 [lb_av] [facility] T ([facility] Patient Treatment Plan of Care Planned Activity Planned Date Details Description Data Source (s) levocetirizine dihydrochloride 5 MG Oral Tablet 02/24/2021 12:00:00 AM EDT eCW1 ([facility]) Betamethasone 0.5 MG/ML Topical Cream 02/24/2021 12:00:00 AM EDT eCW1 ([facility]) hydroquinone 40 MG/ML Topical Cream 02/24/2021 12:00:00 AM EDT eCW1 ([facility])
--- OUTSIDE RECORDS SUMMARY | 2021-04-02 18:08 | CCD | Continuity of Care Document ---
Author Author [facility] Unknown Address [address] [place] [address] [place] [address] Phone [phone] Care Team Providers Care Web Developer Programmer Name Role Phone Sonya Madsen MD [facility] [phone] Problems Description No Information Available Social History [...] CPT Code Status Date Vaccine Lot # [id number] Given 02/12/2017 Tdap/Tetanus, Di phth Toxoids/Acellular Pertussis Vac 7Yr Or > [id number] Vital Signs Date Vital Result Comment 03/09/2021 [...] Available Procedures Date Code Description Status 03/09/2021 07901 Office/Outpatient Established Lo w MDM 20-29 Min Completed 03/09/2021 02353 Remove Impact Cerumen Irrigati C ompleted 09/20/2020 13398 Office/Outpatient New Low MDM 30 -44 Minutes [...]
--- OUTSIDE RECORDS SUMMARY | 2021-04-02 18:08 | CCD | Continuity of Care Document ---
Author Author Rosa [facility] Organization Unknown Address [address] [place] [address] [place] [address] Phone [phone] Care Team Providers Care Valuation Consultant Name Role Phone Sonya Madsen MD [facility] [phone] Problems Description No Information Available Social History [...] CPT Code Status Date Vaccine Lot # [id number] Given 02/12/2017 Tdap/Tetanus, Di phth Toxoids/Acellular Pertussis Vac 7Yr Or > [id number] Vital Signs Date Vital Result Comment 03/09/2021 [...] Available Procedures Date Code Description Status 03/09/2021 03102 Office/Outpatient Established Lo w MDM 20-29 Min Completed 03/09/2021 70801 Remove Impact Cerumen Irrigati C ompleted 09/20/2020 04627 Office/Outpatient New Low MDM 30 -44 Minutes [...]
--- OUTSIDE RECORDS SUMMARY | 2021-04-02 18:09 | CCD ---
Author Author [facility] Organization [facility] Address Unknown Phone Unavailable Care Team Providers Care Reserve Officer Name Role Phone Petrkarynosta, Howard Lisbeth PA-C Unavailable Unavailabl e Petrancosta, Howard Lisbeth PA-C Unavailable Unavailabl e Petrancosta, Howard Lisbeth PA-C Unavailable Unavailabl e Petrancosta, Howard Lisbeth PA-C Unavailable Unavailabl e Petrancosta, Howard Lisbeth PA-C Unavailable Unavailabl e Petrancosta, Howard Lisbeth PA-C Unavailable Unavailabl e Petrancosta, Howard Lisbeth PA-C Unavailable Unavailabl e Petrancosta, Howard Lisbeth PA-C Unavailable Unavailabl e Petrancosta, Howard Lisbeth PA-C Unavailable Unavailabl e Petrancosta, Howard Lisbeth PA-C Unavailable Unavailabl e Petrancosta, Howard Lisbeth PA-C Unavailable Unavailabl e Petrancosta, Howard Lisbeth PA-C Unavailable Unavailabl e Petrancosta, Howard Lisbeth PA-C Unavailable Unavailabl e Petrancosta, Howard Lisbeth PA-C Unavailable Unavailabl e Petrancosta, Howard Lisbeth PA-C Unavailable Unavailabl e Petrancosta, Howard Lisbeht PA-C Unavailable Unavailabl e Petrancosta, Howard Lisbeth PA-C Unavailable Unavailabl e Petrancosta, Howard Lisbeth PA-C Unavailable Unavailabl e Petrancosta, Howard Lisbeth PA-C Unavailable Unavailabl e Petrancosta, Howard Lisbeth PA-C Unavailable Unavailabl e Petrancosta, Howard Lisbeth PA-C Unavailable Unavailabl e Petrancosta, Howard Lisbeth PA-C Unavailable Unavailabl e Petrancosta, Howard Lisbeth PA-C Unavailable Unavailabl e Petrancosta, Howard Lisbeth PA-C Unavailable Unavailabl e Petrancosta, Howard Lisbeth PA-C Unavailable Unavailabl e LETTIERE, A [...] A BENJAMIN PA Unavailable Unavailable Pleskach, Estrella BUSINESS SERVICES MANAGER Unavailable Unavailable Pleskach, Estrella BUSINESS SERVICES MANAGER Unavailable Unavailable Pleskach, Estrella BUSINESS SERVICES MANAGER Unavailable Unavailable Pleskach, Estrella BUSINESS SERVICES MANAGER Unavailable Unavailable Pleskach, Estrella BUSINESS SERVICES MANAGER Unavailable Unavailable Pleskach, Estrella BUSINESS SERVICES MANAGER Unavailable Unavailable Pleskach, Estrella BUSINESS SERVICES MANAGER Unavailable Unavailable Pleskach, Estrella BUSINESS SERVICES MANAGER Unavailable Unavailable Pleskach, Estrella BUSINESS SERVICES MANAGER Unavailable Unavailable Pleskach, Estrella BUSINESS SERVICES MANAGER Unavailable Unavailable Pleskach, Estrella BUSINESS SERVICES MANAGER Unavailable Unavailable Pleskach, Estrella BUSINESS SERVICES MANAGER Unavailable Unavailable Pleskach, Estrella BUSINESS SERVICES MANAGER Unavailable Unavailable Pleskach, Estrella BUSINESS SERVICES MANAGER Unavailable Unavailable Pleskach, Estrella BUSINESS SERVICES MANAGER Unavailable Unavailable Pleskach, Estrella BUSINESS SERVICES MANAGER Unavailable Unavailable Pleskach, Estrella BUSINESS SERVICES MANAGER Unavailable Unavailable Pleskach, Estrella BUSINESS SERVICES MANAGER Unavailable Unavailable Pleskach, Estrella BUSINESS SERVICES MANAGER Unavailable Unavailable Pleskach, Estrella BUSINESS SERVICES MANAGER Unavailable Unavailable Pleskach, Estrella BUSINESS SERVICES MANAGER Unavailable Unavailable Pleskach, Estrella BUSINESS SERVICES MANAGER Unavailable Unavailable Pleskach, Estrella BUSINESS SERVICES MANAGER Unavailable Unavailable Pleskach, Estrella BUSINESS SERVICES MANAGER Unavailable Unavailable Pleskach, Estrella BUSINESS SERVICES MANAGER Unavailable Unavailable Pleskach, Estrella BUSINESS SERVICES MANAGER Unavailable Unavailable Pleskach, Estrella BUSINESS SERVICES MANAGER Unavailable Unavailable Pleskach, Estrella BUSINESS SERVICES MANAGER Unavailable Unavailable Pleskach, Estrella BUSINESS SERVICES MANAGER Unavailable Unavailable Pleskach, Estrella BUSINESS SERVICES MANAGER Unavailable Unavailable Pleskach, Estrella BUSINESS SERVICES MANAGER Unavailable Unavailable Pleskach, Estrella BUSINESS SERVICES MANAGER Unavailable Unavailable Pleskach, Estrella BUSINESS SERVICES MANAGER Unavailable Unavailable Pleskach, Estrella BUSINESS SERVICES MANAGER Unavailable Unavailable Pleskach, Estrella BUSINESS SERVICES MANAGER Unavailable Unavailable Pleskach, Estrella BUSINESS SERVICES MANAGER Unavailable Unavailable Pleskach, Estrella BUSINESS SERVICES MANAGER Unavailable Unavailable Pleskach, Estrella BUSINESS SERVICES MANAGER Unavailable Unavailable Pleskach, Estrella BUSINESS SERVICES MANAGER Unavailable Unavailable Pleskach, Estrella BUSINESS SERVICES MANAGER Unavailable Unavailable Pleskach, Estrella BUSINESS SERVICES MANAGER Unavailable Unavailable Pleskach, Estrella BUSINESS SERVICES MANAGER Unavailable Unavailable Pleskach, Estrella BUSINESS SERVICES MANAGER Unavailable Unavailable Pleskach, Estrella BUSINESS SERVICES MANAGER Unavailable Unavailable Roberto Madsen MD Unavailable Unavailable [...] A Sonya JOSUE Unavailable Unavailable Cale, A Soyna JOSUE Unavailable Unavailable Cale, A Sonya JOSUE [...] Cale, Roberto Hassan MD Unavailable Unavailable Cale, Rboerto Hassan MD Unavailable Unavailable Cale, A Sonya [...] Cale, Roberto Hassan MD Unavailable Unavailable Cale, Roberot Hassan MD Unavailable Unavailable Cale, Roberto Hassan [...] is protected by Article 27-F of the [facility] Public Health law. If you continue you may have access to information: Regarding HIV / AIDS; Provided by facilities licensed or operated by the [facility] Office of Mental Health; or Provided by the [facility] Office for People With Developmental Disabilities. If such information is present, then the following [facility] mandated warning applies: This information [...] law may result in a fine or chcf sentence or both. A general authorization for the release of medical or other information is NOT sufficient authorization for further disc losure. Allergies and Adverse Reactions Type Description Substance Reaction Status Data Source(s ) No Known Allergies No Known Allergies [facility] Family History Family Member Name Family Member Gender Family Member Status Date o f Status Description Data Source(s) Unknown Male Problem MEDENT ([facility]) Unknown Unknown Problem [facility] ([facility] Unknown Male Problem [facility] ([facility]) () Unknown Unknown Problem [facility] ([facility]) father Encounters Encounter Providers Location Date Indications Data Source(s ) Outpatient Attender: CARLOS Frnakela ry 03/09/2021 04:35:00 PM EDT [facility] ([facility] Outpatient Attender: Estrella Irwin [facility] Main Office 03/07/2021 1 1:45:00 AM EDT [facility] ([facility] Unknown [address] [facility] [address] 02/24/2021 12:00:00 AM EDT eCW1 (Critical access hospital) Outpatient Attender: Estrella Irwin [facility] Main Office 01/13/2021 1 1:30:00 AM EDT MED[facility] ([facility] Outpatient Attender: Sonya Madsen MDConsultant: Sonya grant MD 10/28/2020 02:07:00 PM EDT - 10/28/2020 03:07:00 PM EDT [facility] Outpatient Attender: Sonya Madsen MD Main Office 10/25/2020 01:15:0 0 PM EDT MED[facility] ([facility] Outpatient Attender: Lisbeth Worthy PA-C Main Office 09/22/2020 10:30:00 AM EDT MED[facility] ([facility] Outpatient Attender: BENJAMIN Frankel jose 09/20/2020 04:25:00 PM EDT MED[facility] ([facility]) Outpatient Attender: Estrella Irwin [facility] Main Office 02/16/2020 0 1:45:00 PM EDT MED[facility] ([facility] Immunizations Vaccine Date Status Description Data Source(s) COVID-19 VACCINE Moderna 03/15/2021 12:00:00 AM EDT completed [facility] Vaccine Series Complete: YESThis Data wa s Submitted to [facility] Via [facility]. Moderna Sars-(Covid-19) vaccine, mRNA, LNP-S, PF, 100 mcg/ 0.5 mL 08/19/2020 12:00:00 AM EDT completed [facility] ([facility] COVID-19 VACCINE Moderna 08/19/2020 12:00:00 AM EDT completed [facility] Vaccine Series Complete: YESThis Data wa s Submitted to [facility]. COVID-19 VACCINE Moderna 07/22/2020 12:00:00 AM EST completed [facility] Vaccine Series Complete: NOThis Data was Submitted to [facility]. Moderna Sars-(Covid-19) vaccine, mRNA, LNP-S, PF, 100 [...] active Levoceti rizine Dihydrochloride 5 MG eCW1 ([facility]) Betamethasone 0.5 MG/ML Topical Cream Betamethasone Di propionate 0.05 % Betamethasone Dipropionate 0.05 % 02/24/2021 12:00:00 AM EDT active Betamethasone Dipropionate 0.05 % eCW1 ([facility]) hydroquinone 40 MG/ML Topical Cream Hydroquinone 4 % Hydroqu inone 4 % 02/24/2021 12:00:00 AM EDT 1.0 {application} active Hydroquinone 4 % eCW1 ([facility]) Azelastine HCL (Nasal) Azelastine HCL (Nasal) 12/29/2020 [...] Acetonide 09/20/2020 12:00:00 AM EDT active MEDENT ([facility]) Covid-19 vaccine, Unspecified 08/19/2020 12:00:00 AM EDT completed MED[facility] ([facility]) Medication administered onsite Covid-19 vaccine, Unspecified 07/22/2020 12:00:00 AM EST completed MED[facility] ([facility]) Medication administered onsite Insurance Providers Payer name Policy type / Coverage type Policy ID Covered constitution party ID Covered constitution party's relationship to negron Policy Negron Plan Information Alley Urena (pr) [facility] Part B [id number] Self [id number] [facility] (pr) [facility] Part B [id number] Self [id number] MEDICARE COMPLETE [id number] [facility] Medicare Commercial [id number] Self [id number] [facility]) Commercial [id number] Self [id number] ANS-Medicare Part B [id number] [facility] Medicare Commercial [id number] Self [id number] [facility]/Medicare Commercial [id number] Self [id number] [facility] Medicare Commercial [id number] Self [id number] [facility] Medicare Commercial [id number] Self [id number] [facility] Medicare Commercial [id number] Self [id number] ANSI-Medicare Part B [id number] [facility]/Medicare Commercial [id number] Self [id number] [facility] Medicare Commercial [id number] Self [id number] [facility] Medicare Commercial [id number] Self [id number] [facility] Medicare Commercial [id number] Self [id number] [facility] Medicare Commercial [id number] Self [id number] [facility]/Medicare Solu Commercial [id number] Self [id number] [facility]/Medicare Solu Commercial [id number] Self [id number] [facility]/Medicare Solu Commercial [id number] Self [id number] [facility]/Medicare Solu Commercial [id number] Self [id number] [facility]/Medicare Solu Commercial [id number] Self [id number] MEDICARE COMPLETE-[facility] O [id number] S [id number] [facility] Medicare Commercial [id number] Self [id number] [employer] MEDICARE -CLINIC [id number] 18 [id number] [employer] MEDICARE -PHYSICIAN [id number] 18 [id number] [facility]/Medicare Solu Commercial [id number] Self [facility] Commercial [id number] Self [facility] [id number] SP [id number] MEDICARE COMPLETE [id number] SP [id number] MEDICARE COMPLETE [id number] SP [id number] [employer] MEDICARE-O/P [id number] 18 [id number] Problems, Conditions, and Diagnoses Code Display Name Description Problem Type Effective Dates Data Source(s) I10 Essential (primary) hypertension Essential (primary) h ypertension Diagnosis 10/28/2020 02:07:00 PM EDT [facility] Z85.828 [id number] Hx of basal cell carcinoma Problem 12:00:00 AM EDT eCW1 ([facility]) [id number] Pure hypercholesterolemia Pure hypercholesterolemia Pr oblem 12/29/2020 12:00:00 AM EDT MED[facility] ([facility]) [id number] Essential hypertension Essential hypertension Problem 12/29/2020 12:00:00 AM EDT MED[facility] ([facility]) Surgeries/Procedures Procedure Description Date Indications Data Source(s) Remove Impact Cerumen Irrigati 03/09/2021 12:00:00 AM EDT [facility] ([facility]) OFFICE OUTPATIENT VISIT 15 MINUTES 03/09/2021 12:00:00 AM EDT MEDENT ([facility]) RMVL IMPACTED CERUMEN SPX 1/BOTH EARS 03/07/2021 [...] 25 MINUTES 10/25/2020 12:00:00 AM EDT MED[facility] ([facility] OFFICE OUTPATIENT VISIT 15 MINUTES 09/22/2020 12:00:00 AM EDT [facility] ([facility] OFFICE OUTPATIENT NEW 30 MINUTES 09/20/2020 12:00:00 A M EDT MEDENT ([facility]) Results ID Date Data Source [id number] 10/28/2020 02:15:00 PM EDT MEDENT ([facility] [...] N Creatinine 0.9 mg/dL 0.7-1.5 [facility] ([facility] Is patient fasting? N Albumin [...] N Non-Aa GFR Laboratory test result MED[facility] ([facility] Is patient fasting? N Afr Amer GFR Laboratory test result [facility] ([facility] Is patient fasting? N ID Date Data Source [id number] 10/28/2020 02:15:00 PM EDT MED[facility] ([facility] [...] patient fasting? N ID Date Data Source [id number] 10/28/2020 02:15:00 PM EDT MED[facility] ([facility] [...] [facility] Is patient fasting? N [place] 5.5 % 3.0-8.0 MED[facility] ([facility] grant [facility]., [...] [facility] Is patient fasting? N #[place] 0.42 10^3/uL 0.00-0.90 MED[facility] ([facility] [...] patient fasting? N ID Date Data Source [id number] 10/28/2020 05:55:00 PM EDT [facility] Name Value Range Interpretation Code Description Data Michell rce(s) Supporting Document(s) [facility] Cholesterol [Mass/volume] in Serum or Plasma 138 MG/DL 131 - 200 [facility] Deprecated Triglyceride [Mass/volume] in Serum or Plasma 190 MG/DL 3 5 - 160 H [facility] HDL 59 MG/DL 29 - 86 [facility] al Cholesterol in LDL [Mass/volume] in Serum or Plasma by Direc t assay 57 mg/dL 65 - 175 L [facility] Cholesterol.total/Cholesterol in HDL [Mass Ratio] in Serum o r Plasma 2.3 3.2 - 4.4 L [facility] LDL/HDL 0.97 1.47 - 3.22 L [facility] CVE RISK CHOL/HDL LDL/HDLMEN: 1/2 AVERAGE 3.43 1.00 AVERAGE 4.97 3.55 2X AVERAGE 9.55 6.25 3X AVERAGE 23.99 7.99WOMEN: 1/2 AVERAGE 3.27 1.47 AVERAGE 4.44 3.22 2X AVERAGE 7.05 5.03 3X AVERAGE 11.04 6.14 ID Date Data Source [id number] 10/28/2020 05:55:00 PM EDT [facility] Name Value Range Interpretation Code Description Data Michell rce(s) Supporting Document(s) COMPREHENSIVE METABOLIC PANEL [facility] COMPREHENSIVE METABOLIC PANEL Sodium [Moles/volume] in Serum or Plasma 138 mEq/L 134 - 153 [facility] Potassium [Moles/volume] in Serum or Plasma 4.4 mEq/L 3.6 - 5.0 [facility] Chloride [Moles/volume] in Serum or Plasma 102 mEq/L 98 - 107 [facility] Carbon dioxide, total [Moles/volume] in Serum or Plasma 24 MEQ/L 22 - 30 [facility] Glucose [Mass/volume] in Serum or Plasma 103 MG/DL 70 - 99 H [facility] BUN 11 MG/DL 7 - 21 [facility] al Creatinine [Mass/volume] in Serum or Plasma 0.9 MG/DL 0.7 - 1.5 [facility] BUN/CREAT 12 8 - 27 [facility] al Protein [Mass/volume] in Serum or Plasma 7.2 G/DL 6.3 - 8.2 [facility] Albumin [Mass/volume] in Serum or Plasma 4.8 G/DL 3.9 - 5.0 [facility] Globulin [Mass/volume] in Serum by calculation 2.4 GM/DL 2.4 - 3.2 [facility] A/G RATIO 2.0 0.8 - 2.0 [facility] Calcium [Mass/volume] in Serum or Plasma 10.3 MG/DL 8.4 - 10.2 H [facility] Bilirubin.total [Mass/volume] in Serum or Plasma <0.7 MG/DL 0.2 - 1.3 [facility] Alkaline phosphatase [Enzymatic activity/volume] in Serum or Plasma 138 U/L 38 - 126 H [facility] Aspartate aminotransferase [Enzymatic activity/volume] in Serum or Plasma 21 U/L 5 - 40 [facility] Alanine aminotransferase [Enzymatic activity/volume] in Seru m or Plasma 22 U/L 7 - 56 [facility] Anion gap 3 in Serum or Plasma 12.0 mmol/L 8.0 - 16.0 [facility] AGE 75 yrs [facility] NON-AA GFR >60 mL/min [facility] ital AFR AMER GFR >60 [facility] Male GFR In terprentation 20-49 [...] >32 mL/min Normal ID Date Data Source [id number] 10/28/2020 02:41:00 PM EDT [facility] Name Value Range Interpretation Code Description Data Michell rce(s) Supporting Document(s) CBC W/AUTOMATED DIFF [facility] COMPLETE BLOOD COUNT Leukocytes [#/volume] in Blood by Automated count 7.7 10^3/uL 4.2 - 1 1.0 [facility] Erythrocytes [#/volume] in Blood by Automated count 4.94 10^6/uL 4. 20 - 5.40 [facility] Hemoglobin [Mass/volume] in Blood 15.3 g/dL 12.0 - 16.0 [facility] Hematocrit [Volume Fraction] of Blood by Automated count 45.5 % 3 7.0 - 47.0 [facility] Erythrocyte mean corpuscular volume [Entitic volume] by Auto mated count 92.1 fL 81.0 - 101 [facility] Erythrocyte mean corpuscular hemoglobin [Entitic mass] by Automated count 31.0 pg 27.0 - 34.0 [facility] Erythrocyte mean corpuscular hemoglobin concentration [Mass/volume] by Automated count 33.6 g/dL 31.0 - 36.0 [facility] Erythrocyte distribution width [Ratio] by Automated count 12.1 % 11.5 - 14.5 [facility] Platelets [#/volume] in Blood by Automated count 229 10^3/uL 150 - 45 0 [facility] Platelet mean volume [Entitic volume] in Blood by Automated count 9.3 fL 7.4 - 10.4 [facility] Neutrophils/100 leukocytes in Blood by Automated count 59.0 % 37. 0 - 80.0 [facility] Lymphocytes/100 leukocytes in Blood by Manual count 32.1 % 25.0 - 40.0 [facility] Monocytes/100 leukocytes in Blood by Automated count 5.5 % 3.0 - 8.0 [facility] Eosinophils/100 leukocytes in Blood by Automated count 2.3 % 0.0 - 7.0 [facility] Basophils/100 leukocytes in Blood by Automated count 0.8 % 0.0 - 2.5 [facility] %IG 0.3 % 0.0 - 0.0 [facility] %NRBC 0.0 % 0.0 - 0.0 [facility] al Neutrophils [#/volume] in Blood by Automated count 4.54 10^3/uL 2.00 - 6.90 [facility] Lymphocytes [#/volume] in Blood by Automated count 2.47 10^3/uL 0.60 - 3.40 [facility] Monocytes [#/volume] in Blood by Automated count 0.42 10^3/uL 0.00 - 0.90 [facility] Eosinophils [#/volume] in Blood by Automated count 0.18 10^3/uL 0.00 - 0.70 [facility] Basophils [#/volume] in Blood by Automated count 0.06 10^3/uL 0.00 - 0.20 [facility] #IG 0.02 10^3/uL 0.00 - 0.10 [facility] #NRBC 0.00 10^3/uL 0.00 - 0.00 [facility] MANUAL DIFF NOT INDICATED [facility] RBC MORPH NOT INDICATED [facility] Procedure Social History Code Duration Value Status Description Data Source(s ) Smoking 03/07/2021 12:00:00 AM EDT Patient has never smoked co mpleted Patient has never smoked [facility] ([facility] Smoking 02/24/2021 12:00:00 AM EDT Never Smoker completed Never S norbert eCW1 ([facility]) Smoking 12/29/2020 12:00:00 AM EDT Patient has never smoked co mpleted Patient has never smoked MEDENT ([facility]) Vital Signs ID Date Data Source UNK Name Value Range Interpretation Code Description Data Source(s) Systolic blood pressure 144 mm[Hg] 144 mm[Hg] M EDENT ([facility]) Diastolic blood pressure 80 mm[Hg] 80 mm[Hg] MEDENT ([facility]) Heart rate 75 /min 75 /min MEDENT ([facility]) Respiratory rate 18 /min 18 /min MEDENT ( [facility]) Oxygen saturation in Arterial blood by Pulse oximetry 97 % 97 % MEDENT ([facility]) Body temperature 98.1 [degF] 98.1 [degF] MEDENT ([facility]) Body weight 148.00 [lb_av] 148.00 [lb_av] MEDEN T ([facility]) Body height 63 [in_i] 63 [in_i] MEDENT ([facility]) 5'3" Body mass index (BMI) [Ratio] 26.2 kg/m2 26.2 k g/m2 MEDENT ([facility]) Diastolic blood pressure 90 mm[Hg] 90 mm[Hg] [facility] ([facility] Systolic blood pressure 150 mm[Hg] 150 mm[Hg] M EDENT ([facility] Diastolic blood pressure 69 mm[Hg] 69 mm[Hg] [facility] ([facility] Heart rate 16 /min 16 /min [facility] ([facility] Body temperature 96.4 [degF] 96.4 [degF] [facility] ([facility] Systolic blood pressure 126 mm[Hg] 126 mm[Hg] M EDENT ([facility] Body height 62 [in_i] 62 [in_i] MED[facility] ([facility] 5'2" Body weight 149.12 [lb_av] 149.12 [lb_av] MEDEN T ([facility] Oxygen saturation in Arterial blood by Pulse oximetry 96 % 96 % [facility] ([facility] Respiratory rate 16 /min 16 /min MED[facility] ( [facility] [place] body weight 110 [lb_av] 110 [lb_av] MEDEN T ([facility] Body mass index (BMI) [Ratio] 27.3 kg/m2 27.3 k g/m2 [facility] ([facility] Body mass index (BMI) [Ratio] 27.1 kg/m2 27.1 k g/m2 [facility] ([facility] Oxygen saturation in Arterial blood by Pulse oximetry 98 % 98 % [facility] ([facility] Systolic blood [...] [in_i] MED[facility] ([facility] 5'2" [place] body weight 110 [lb_av] 110 [lb_av] MEDEN T ([facility] Body weight 148.12 [lb_av] 148.12 [lb_av] MEDEN [...] k g/m2 MEDENT ([facility]) Diastolic blood pressure 80 mm[Hg] 80 mm[Hg] [facility] ([facility] recheck Heart rate 72 /min 72 /min [facility] ([facility] Body temperature 97.3 [degF] 97.3 [degF] [facility] ([facility] Systolic blood pressure 166 mm[Hg] 166 mm[Hg] M EDENT ([facility] Respiratory rate 15 /min 15 /min [facility] ( [facility] Body weight 146.00 [lb_av] 146.00 [lb_av] MEDEN T ([facility] [place] body weight 110 [lb_av] 110 [lb_av] MEDEN T ([facility] Body mass index (BMI) [Ratio] 26.7 kg/m2 26.7 k g/m2 [facility] ([facility] Body height 62 [in_i] 62 [in_i] [facility] ([facility] 5'2" Systolic blood pressure 148 mm[Hg] 148 mm[Hg] M EDENT ([facility] recheck Diastolic blood pressure 78 mm[Hg] 78 mm[Hg] [facility] ([facility] Heart rate 62 /min 62 /min MEDENT [...] 9394 % [facility] ([facility] [place] body weight 110 [lb_av] 110 [lb_av] MEDEN T ([facility] Body mass index (BMI) [Ratio] 27.5 kg/m2 27.5 k g/m2 [facility] ([facility] Systolic blood pressure 173 mm[Hg] 173 mm[facility]Hg] [facility] [place] ([facility], [facility]) Diastolic blood pressure 86 mm[Hg] 86 mm[Hg] [place] ([facility], [facility]) Heart rate 69 /min 69 /min [facility] ([facility], [facility]) Respiratory rate 16 /min 16 /min [facility] [place] ( [facility], [facility]) Oxygen saturation in Arterial blood by Pulse oximetry 98 % 98 % [facility] [place] ([facility], [facility]) Body temperature 97.5 [degF] 97.5 [degF] [facility] ([facility], [facility]) Body weight 140.00 [lb_av] 140.00 [lb_av] [facility] T ([facility], [facility]) Body height 63 [in_i] 63 [in_i] [facility] ([facility], [facility]) 5'3" Body mass index (BMI) [Ratio] 24.8 kg/m2 24.8 k g/m2 [facility] [place] ([facility], [facility]) Diastolic blood pressure 77 mm[Hg] 77 mm[Hg] [facility] ([facility] recheck Systolic blood pressure 164 mm[Hg] 164 mm[Hg] [facility] [place] [facility] Diastolic blood pressure 81 mm[Hg] 81 mm[Hg] [facility] ([facility] Systolic blood pressure 160 mm[Hg] 160 mm[Hg] M [facility] ([facility] recheck Heart rate 67 /min 67 /min [facility] [...] 97 % [facility] ([facility] [place] body weight 110 [lb_av] 110 [lb_av] MEDEN T ([facility] Body mass index (BMI) [Ratio] 26.9 kg/m2 26.9 k g/m2 [facility] ([facility] Patient Treatment Plan of Care Planned Activity Planned Date Details Description Data Source (s) levocetirizine dihydrochloride 5 MG Oral Tablet 02/24/2021 12:00:00 AM EDT eCW1 ([facility] [place]) Betamethasone 0.5 MG/ML Topical Cream 02/24/2021 12:00:00 AM EDT eCW1 ([facility]) hydroquinone 40 MG/ML Topical Cream 02/24/2021 12:00:00 AM EDT eCW1 ([facility])
--- NOTE | 2021-04-02 18:48 | REP ---
INDICATION: fell. COMPARISON: None. TECHNIQUE: Four views of the right elbow were obtained. FINDINGS: There is no evidence of fracture or dislocation. There is no elbow joint effusion. There is no significant arthropathy. The periarticular soft tissues are normal. IMPRESSION: No evidence of fracture or dislocation. No significant arthropathy. <Electronically signed by Ayush Loo > 04/02/21 [id number]
--- NOTE | 2021-04-02 18:56 | REP ---
INDICATION: fell. COMPARISON: None. TECHNIQUE: Two views of the right forearm were obtained. FINDINGS: No evidence of fracture. No significant abnormality of the wrist or elbow joint. There are no soft tissue abnormalities. IMPRESSION: No significant abnormality of the right forearm. <Electronically signed by Ayush Loo > 04/02/21 [id number]
--- NOTE | 2021-04-02 19:00 | REP ---
INDICATION: fell. COMPARISON: None. TECHNIQUE: Four views of the right wrist were obtained. FINDINGS: There is no evidence of fracture or dislocation. 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 There are no soft tissue abnormalities. IMPRESSION: No evidence of fracture or dislocation. 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 <Electronically signed by Ayush Loo > 04/02/21 [id number]
== END 2021-04-02 19:51 | disposition home or self-care (01) ==
LOC: M ED 17:27
DX: S00.83XA Contusion of other part of head, initial encounter (principal); S80.01XA Contusion of right knee, initial encounter; S63.501A Unspecified sprain of right wrist, initial encounter; W19.XXXA Unspecified fall, initial encounter; Y92.099 Unspecified place in other non-institutional residence as the place of occurrence of the external cause; Y93.89 Activity, other specified; Y99.9 Unspecified external cause status; I48.91 Unspecified atrial fibrillation; I10 Essential (primary) hypertension; F41.9 Anxiety disorder, unspecified; F32.9 Major depressive disorder, single episode, unspecified; K52.9 Noninfective gastroenteritis and colitis, unspecified; Z79.899 Other long term (current) drug therapy

== ENCOUNTER → 2021-05-16 | Outpatient (CLI) | payer MEDICARE ==
[~2021-05-16] MED LIST changes: -CITA10TA5 PO; +CITA10TA7 PO
== END ==
LOC: M WHC 12:39
PROVIDERS: ATTEND Family Medicine
DX: Z12.31 Encounter for screening mammogram for malignant neoplasm of breast (principal)

== ENCOUNTER → 2021-06-26 | Outpatient (CLI) | payer MEDICARE | LOC: M WHC 13:57 | PROVIDERS: ATTEND Nurse Practitioner Family | DX: Z13.820 Encounter for screening for osteoporosis (principal) ==

== ENCOUNTER → 2022-06-29 | Outpatient (CLI) | payer MEDICARE | LOC: M WHC 11:57 | PROVIDERS: ATTEND Family Medicine | DX: Z12.31 Encounter for screening mammogram for malignant neoplasm of breast (principal) ==

== ENCOUNTER → 2023-01-28 | Outpatient (CLI) | payer MEDICARE ==
[~2023-01-28] MED LIST changes: -ENAL-36 PO; +ENAL1TAB50 PO; +FLUT50SP17; -FLUTISP
== END ==
LOC: M SOG 07:57
PROVIDERS: ATTEND Orthopaedic Surgery
DX: M25.552 Pain in left hip (principal)

== ENCOUNTER → 2023-06-16 | Outpatient (REF) | payer MEDICARE ==
[~2023-06-16] MED LIST changes: -FLUT50SP17; +FLUTISP
== END ==
LOC: M WUC 18:41
PROVIDERS: ATTEND Registered Nurse
DX: N39.0 Urinary tract infection, site not specified (principal); B96.5 Pseudomonas (aeruginosa) (mallei) (pseudomallei) as the cause of diseases classified elsewhere

== ENCOUNTER → 2023-06-19 | Outpatient (CLI) | payer MEDICARE | LOC: M PLAIMG 12:24 | PROVIDERS: ATTEND Nurse Practitioner Family | DX: M25.551 Pain in right hip (principal) ==

== ENCOUNTER → 2023-08-01 | Outpatient (CLI) | payer MEDICARE | LOC: M WHC 13:33 | PROVIDERS: ATTEND Nurse Practitioner Family | DX: Z12.31 Encounter for screening mammogram for malignant neoplasm of breast (principal); M81.0 Age-related osteoporosis without current pathological fracture ==

== ENCOUNTER → 2025-05-04 | Outpatient (CLI) | payer MEDICARE ==
[~2025-05-04] MED LIST changes: -AZEL0.055 NARES; +AZEL1SPR4 NARES
== END ==
LOC: M SOG 07:46
PROVIDERS: ATTEND Orthopaedic Surgery
DX: M25.562 Pain in left knee (principal); M17.0 Bilateral primary osteoarthritis of knee